=== PATIENT | female | born 1970 | race Caucasian/White ===

== ENCOUNTER 2021-01-14 11:55 | Inpatient (IN) | payer MEDICAID, SELFPAY ==
[~2021-01-14] VITALS: Ht 142.2 cm; Wt 55.6 kg
--- NOTE | 2021-01-14 01:00 | NUR ---
MADE ROUNDS. PATIENT IS ASLEEP. NO S/S RESPIRATORY DISTRESS. PATIENT IS CLEAN/DRY.
[~2021-01-14 11:55] MED LIST: ACET-8386 PO; TAMS0.4C96 PO
--- NOTE | 2021-01-14 12:00 | NUR ---
BIB WHEELCHAIR TO ER BED 3
[2021-01-14 12:06] VITALS: BP 144/104
[2021-01-14] MEDS ORDERED: cefTRIAXone 1,000 MG in DEXT 5% MINI-BAG PLUS 50 ML IV ONE (12:10)
[2021-01-14] MEDS ORDERED: NACL 0.9% 1,000 ML IV ONE (12:10)
[2021-01-14] MEDS ORDERED: ACETAMINOPHEN EXTRA STRENGTH 500 MG TAB PO ONE (12:10)
--- NOTE | 2021-01-14 12:11 | NUR ---
50 Y/O FEMALE BIB FAMILY C/O SOB AND COUGH [id number], TODAY WORSENED. PT STATES SHE RECEIVED SECOND DOSE OF PFIZER YESTERDAY. TEMP DURING 101.3F. LUNGS ARE DIMINISHED BILATERAL BASES RETRACTING NOTED. PT 68-70% ON RA, PT PLACED ON 6L NC WITH HUMIDIFER SPO2 91%. RT AT PT BEDSIDE. DENIES PMH NKA
--- NOTE | 2021-01-14 12:13 | NUR ---
RT PLACED PT ON 15L NC WITH HUMIDIFIER. MD MADE AWARE. SPO2 96%.
[2021-01-14] MEDS ORDERED: cefTRIAXone 1,000 MG VIAL ONE (12:16)
--- NOTE | 2021-01-14 12:20 | NUR ---
AGRICULTURAL COMMODITIES GRADER AT PT BEDSIDE.
--- NOTE | 2021-01-14 12:23 | NUR ---
UNDERGROUND HEAVY EQUIPMENT OPERATOR AT PT BEDSIDE.
--- NOTE | 2021-01-14 12:32 | NUR ---
PER ERMD 12 LEAD WAS DONE ON PT AND CAME BACK SINUS TACHYCARDIA AT 115 HR.
[2021-01-14 12:55] LABS: BASOPHILS # (AUTO) 0.1 K/uL (0.00-0.22); BASOPHILS % (AUTO) 0.8 % (0.0-2.0); EOSINOPHILS % (AUTO) 0.3 % (0.0-4.0); HEMATOCRIT 53.3 % (36-48); HEMOGLOBIN 17.1 g/dL (12.0-16.0); LYMPHOCYTES % (AUTO) 9.2 % (20.5-51.1); MEAN CORPUSCULAR HEMOGLOBIN 26 pg (27-31); MEAN CORPUSCULAR HGB CONC 32 g/dL (33-37); MEAN CORPUSCULAR VOLUME 81.7 fL (80-94); MONOCYTES # (AUTO) 0.7 K/uL (0.8-1.0); MONOCYTES % (AUTO) 6.8 % (1.7-9.3); NEUTROPHILS # (AUTO) 8.9 K/uL (1.8-7.7); NEUTROPHILS % (AUTO) 82.9 % (42.2-75.2); PLATELET COUNT (AUTO) 295 K/uL (140-450); RED BLOOD CELL COUNT(AUTO) 6.52 MIL/uL (4.20-5.40); RED CELL DISTRIBUTION WIDTH 20.9 % (11.6-13.7); WHITE BLOOD COUNT (AUTO) 10.7 K/uL (4.8-10.8)
[2021-01-14 13:17] LABS: ALBUMIN 3.5 g/dL (3.4-5.0); ANION GAP 17.7 (8-16); CARBON DIOXIDE 22.4 mmol/L (21-32); CREATININE 0.6 mg/dL (0.6-1.3); POTASSIUM 4.1 mmol/L (3.5-5.1); TOTAL BILIRUBIN 0.8 mg/dL (0.0-1.0)
--- NOTE | 2021-01-14 13:32 | NUR ---
PER MD PT IV BOLUS TO BE STOPPED AT THIS TIME.
[2021-01-14] MEDS ORDERED: LORazepam 2 MG/ML VIAL IVP PRN (13:45)
[2021-01-14] MEDS ORDERED: ONDANSETRON 4 MG/2 ML VIAL IVP PRN (13:45)
[2021-01-14] MEDS ORDERED: ZOLPIDEM 10 MG TAB PO PRN (13:45)
[2021-01-14] MEDS ORDERED: MORPHINE SULFATE 2 MG/ML SYR IVP PRN (13:45)
[2021-01-14] MEDS ORDERED: FUROSEMIDE 40 MG/4 ML VIAL IVP ONE (13:45)
[2021-01-14] MEDS ORDERED: DOCUSATE SODIUM 100 MG GELCAP PO PRN (13:45)
[2021-01-14] MEDS ORDERED: POTASSIUM CHLORIDE 10 MEQ TABER PO PRN (13:45)
[2021-01-14] MEDS ORDERED: MAG SULF 2000 MG/WATER PREMIX 50 ML IV PRN (13:45)
--- NOTE | 2021-01-14 13:55 | NUR ---
PT ADMITTED BY IRMA TAMEZ IN ER BED 3.
--- NOTE | 2021-01-14 14:11 | NUR ---
PT USED COMMODE AT BEDSIDE.
--- NOTE | 2021-01-14 15:04 | NUR ---
PT RESTING IN BED, VSS, WILL CONTINUE TO MONITOR.
--- NOTE | 2021-01-14 16:31 | NUR ---
SPOKE WITH JAMES PT SISTER FOR PT UPDATES. [phone].
--- NOTE | 2021-01-14 17:11 | NUR ---
PT RESTING IN BED, VSS, WILL CONTINUE TO MONITOR.
--- NOTE | 2021-01-14 19:07 | NUR ---
PT PTROVIDED WITH DINNER TRAY, SITTING UP IN BED, WILL CONTINUE TO MONITOR.
--- NOTE | 2021-01-14 19:25 | NUR ---
GAVE REPORT TO GRACE GRAY. TRANSFER OF CARE AT THIS TIME.
--- NOTE | 2021-01-14 19:25 | NUR ---
RECEIVED REPORT FROM YVONNE FOR CONTINUITY OF CARE
--- NOTE | 2021-01-14 19:32 | NUR ---
Patient appears to be resting comfortably in bed- low fowlers and in position. Vital Signs within normal limits. Respirations even and unlabored on 15L NC with humidifier. Patient denies any pain but does c/o discomfort in relation to her cough. AAOx4. GCS 15. IV flushable with 10cc, patent with no swelling at the site.
[2021-01-14 23:00] VITALS: BP 125/90
--- NOTE | 2021-01-14 23:00 | NUR ---
RECEIVED PATIENT FROM ER NURSE FOR CONTINUITY OF CARE. ALERT AND ABLE TO MAKE NEEDS KNOWN. RESPIRATIONS EVEN, SLIGHTLY TACHYPNEIC. NO S/S RESPIRATORY DISTRESS. CONTINUES ON O2 10L VIA HFNC, O2SAT 97%. S1/S2 AUSCULTATED. TELE MONITORING. SKIN ASSESSMENT COMPLETED. SKIN WARM, DRY AND INTACT. SALINE LOCK TO RIGHT WRIST 20G PATENT/INTACT. NO C/O PAIN. ABDOMEN SOFT, NONTENDER, NONDISTENDED. BOWEL SOUNDS ACTIVE x4 QUADRANTS. PATIENT IS CONTINENT OF B/B. MRSA SCREEN COMPLETED. PATIENT ORIENTED TO ROOM/STAFF/CALL LIGHT. PLAN OF CARE DISCUSSED. CALL LIGHT IN REACH.
--- NOTE | 2021-01-14 23:00 | NUR ---
Patient will be admitted to care of Rangel BLAIR. Admited to [facility]. Will go to room ICU RM 1. Belongings list completed. Report to Maki EDAWRDS.
[2021-01-15] VITALS (7 sets, daily range): BP systolic 107–131; BP diastolic 74–88
--- NOTE | 2021-01-15 03:44 | NUR ---
PATIENT IS ASLEEP. NO S/S RESPIRATORY DISTRESS. PATIENT IS CLEAN/DRY.
--- NOTE | 2021-01-15 05:08 | NUR ---
ALL NEEDS ANTICIPATED AND MET. NO S/S RESPIRATORY DISTRESS. DENIES PAIN. PATIENT IS CLEAN/DRY.
[2021-01-15 07:02] LABS: BASOPHILS # (AUTO) 0.1 K/uL (0.00-0.22); BASOPHILS % (AUTO) 0.9 % (0.0-2.0); EOSINOPHILS # (AUTO) 0.6 K/uL (0-0.4); EOSINOPHILS % (AUTO) 7.2 % (0.0-4.0); HEMATOCRIT 54.4 % (36-48); HEMOGLOBIN 17.3 g/dL (12.0-16.0); LYMPHOCYTES % (AUTO) 13.1 % (20.5-51.1); MEAN CORPUSCULAR HEMOGLOBIN 26 pg (27-31); MEAN CORPUSCULAR HGB CONC 32 g/dL (33-37); MEAN CORPUSCULAR VOLUME 82.1 fL (80-94); MONOCYTES # (AUTO) 0.7 K/uL (0.8-1.0); MONOCYTES % (AUTO) 9.4 % (1.7-9.3); NEUTROPHILS # (AUTO) 5.5 K/uL (1.8-7.7); NEUTROPHILS % (AUTO) 69.4 % (42.2-75.2); PLATELET COUNT (AUTO) 250 K/uL (140-450); RED BLOOD CELL COUNT(AUTO) 6.62 MIL/uL (4.20-5.40); RED CELL DISTRIBUTION WIDTH 20.6 % (11.6-13.7); WHITE BLOOD COUNT (AUTO) 7.9 K/uL (4.8-10.8)
--- NOTE | 2021-01-15 07:18 | NUR ---
Change of shift report received at bedside from Maki RN. Met pt awake alert oriented x4 denies pain vitals signs stable no sign of distress, on 6l lters oxygen via nasal canula, pt on telemetry status, education on care plan, needs some reinforcement understand and speak Cymro only. Call light at reach, bed in low position encouraged to call for help and verbalized concerns to decrease anxiety.
[2021-01-15 07:24] LABS: ANION GAP 12.3 (8-16); CARBON DIOXIDE 27.1 mmol/L (21-32); CREATININE 0.6 mg/dL (0.6-1.3); POTASSIUM 4.4 mmol/L (3.5-5.1)
--- NOTE | 2021-01-15 07:45 | NUR ---
Dr Multani was here updates on pt's condition ongoig tx no new order received as at this time.
[2021-01-15] MEDS ORDERED: AZITHROMYCIN 250 MG TAB PO SCH ×2 (09:00)
[2021-01-15] MEDS: ACETAMINOPHEN 325 MG TAB PO PRN (09:13)
[2021-01-15] MEDS: FUROSEMIDE 40 MG/4 ML VIAL IVP SCH (09:15)
--- NOTE | 2021-01-15 09:45 | NUR ---
Notified Dr Multani about pt frequent coughing with sputum, complaining of headache temp was 99.4 F orally order received COVID PCR AND FLU LAB.
[2021-01-15] MEDS: guaiFENesin DM 200/20 MG-10 ML 10 ML UDC PO PRN ×2 (10:25→20:18)
--- NOTE | 2021-01-15 10:45 | NUR ---
Dr Stewart rounds at the bedside updates on pt's condition, MD asked if pt received Lasix this AM, yes and order next for Echo ultrasound.
--- NOTE | 2021-01-15 11:00 | NUR ---
@ 1040 Specimen for PCR and influenza sent to lab awaiting result
--- NOTE | 2021-01-15 12:54 | NUR ---
Dr Feliz rounds on the pt at the bedside updates on pt's condition on admission/presently ongoing treatments order received for CT SCAN CHEST WITHOUT CONTRAST
--- NOTE | 2021-01-15 14:30 | NUR ---
Echocardiogram and Chest CT scan completed as per MD'S order awaiting results
[2021-01-15] MEDS ORDERED: FUROSEMIDE 40 MG/4 ML VIAL IVP SCH (16:00)
--- NOTE | 2021-01-15 16:45 | NUR ---
FLU A & B result negative awaiting covid PCR, CT SCAN result as per Radiologist suggested correlation for COVID. CT SCAN chest also showed pulmonary edema but pt already on Lasix 40 MG IVP.
--- NOTE | 2021-01-15 17:30 | NUR ---
Awake alert oriented x4 as at this time, vitals signs stable afebrile all through the shift pt is tolerating all her care and treatments well no problem encountered and no complain from pt.
--- NOTE | 2021-01-15 19:03 | NUR ---
Change of shift report given to Sarah EDWARDS for continuity of care, as at this time pt awake alert oriented x4 vitals signs stable no changes in care plan and condition.
--- NOTE | 2021-01-15 19:15 | NUR ---
ASSUMED CARE OF PT.INITIAL ASSESSMENT COMPLETED.PT AWAKE ALERT AND ORIENTED X4. SR ON MONITOR.ON 02NC AT 3LPM.INTERMITTENT PRODUCTIVE COUGHING NOTED.PT ON CARDIAC DIET.DENIES N/V.PT ABLE TO VOID FREELY USING BEDPAN.PT ALSO AMBULATES INSIDE THE ROOM WITH STEADY GAIT.DENIES PAIN AT THIS TIME.WILL CONTINUE TO CLOSELY MONITOR PT
--- NOTE | 2021-01-15 20:06 | NUR ---
CALLED PHONE EDUCATION PROGRAM MANAGER #[phone]; FOR PTS CONCERN/NEEDS.PER EDUCATION PROGRAM MANAGER; PT SAID SHE IS OK AT THIS TIME, JUST WANT SOME PADS, SLIGHT URINARY INCONTINENCE NOTED DURING COUGHING EPISODE.CALL LIGHT WITHIN REACH.FALL PRECAUTIONS IN PLACE.
--- NOTE | 2021-01-15 22:39 | NUR ---
PT ASLEEP AT THIS TIME.NO SIGNS OF RESP DISTRESS NOTED AT THIS TIME.STILL ON 02NC AT 3LPM
[2021-01-16] VITALS: BP_SYST 100; BP_SYST 98; BP_DIAS 66; BP_DIAS 72
--- NOTE | 2021-01-16 00:41 | NUR ---
PT ASLEEP;NO COUGHING NOTED.NO S/SX OFPAIN NOTED.STILL ON 02NC AT 3LPM
[2021-01-16] MEDS: ACETAMINOPHEN 325 MG TAB PO PRN (01:42)
--- NOTE | 2021-01-16 01:43 | NUR ---
PT AWAKE; C/O HEADACHE.TYLENOL ADMINISTERED ORDERED.
--- NOTE | 2021-01-16 02:42 | NUR ---
PT ASLEEP;NO S/SX OF PAIN NOTED.02SAT 96% ON 02NC AT 3LPM
[2021-01-16 04:00] VITALS: BP 92/63
--- NOTE | 2021-01-16 04:58 | NUR ---
PT AWAKE, OFFERED MORNING CARE, REFUSED AT THIS TIME.PT VERBALIZED FEELING COLD.DENIES PAIN.DENIES HEADACHE
[2021-01-16 06:04] LABS: BASOPHILS # (AUTO) 0.1 K/uL (0.00-0.22); BASOPHILS % (AUTO) 0.7 % (0.0-2.0); EOSINOPHILS # (AUTO) 1.2 K/uL (0-0.4); EOSINOPHILS % (AUTO) 12.2 % (0.0-4.0); HEMATOCRIT 53.8 % (36-48); HEMOGLOBIN 16.9 g/dL (12.0-16.0); LYMPHOCYTES # (AUTO) 2.1 K/uL (2.5-16.5); LYMPHOCYTES % (AUTO) 22.5 % (20.5-51.1); MEAN CORPUSCULAR HEMOGLOBIN 26 pg (27-31); MEAN CORPUSCULAR HGB CONC 31 g/dL (33-37); MEAN CORPUSCULAR VOLUME 82.5 fL (80-94); MONOCYTES # (AUTO) 1.4 K/uL (0.8-1.0); MONOCYTES % (AUTO) 14.5 % (1.7-9.3); NEUTROPHILS # (AUTO) 4.8 K/uL (1.8-7.7); NEUTROPHILS % (AUTO) 50.1 % (42.2-75.2); PLATELET COUNT (AUTO) 281 K/uL (140-450); RED BLOOD CELL COUNT(AUTO) 6.52 MIL/uL (4.20-5.40); RED CELL DISTRIBUTION WIDTH 20.9 % (11.6-13.7); WHITE BLOOD COUNT (AUTO) 9.5 K/uL (4.8-10.8)
[2021-01-16 06:36] LABS: ANION GAP 13.3 (8-16); CREATININE 0.6 mg/dL (0.6-1.3); POTASSIUM 4.3 mmol/L (3.5-5.1)
[2021-01-16 08:00] VITALS: BP 97/61
--- NOTE | 2021-01-16 08:00 | NUR ---
ON DUTY RECEIVED THIS PT A/OX4, SPEAKS FULL SENTENCES, BUT IN [place], PT DENIES RIBEIRO AND DIZZINESS. NO S/S OF SOB. OXYGEN ON 3L. O2 SAT WAS 93%. PT WAS IN TELEMETRY STATUS. POSSIBLE HX OF COVID19. BREAKFAST OFFERED @BEDSIDE AT THIS SIDE.
--- NOTE | 2021-01-16 09:00 | NUR ---
PT COMPLAINING OF COLD. BIG SUPERVISOR GAS METER REPAIR, WARMING MACHINE WAS TURNED ON 38 DECREE AND PUT UNDER PT'S BLANKET.
--- NOTE | 2021-01-16 09:08 | NUR ---
PATIENT HAS BEEN SCREENED AND CATEGORIZED MODERATE NUTRITION RISK. PATIENT WILL BE SEEN WITHIN 3-5 DAYS OF ADMISSION. 01/17/21 01/19/21 FNS REFERRAL RECEIVED "NOT APPLICABLE" WITHOUT ANY OTHER NUTRITION HIGH RISK FACTORS ZOHAIB BECERRA RD
[2021-01-16] MEDS: AZITHROMYCIN 250 MG TAB PO SCH (09:36)
[2021-01-16] MEDS: FUROSEMIDE 40 MG/4 ML VIAL IVP SCH (09:36)
--- NOTE | 2021-01-16 10:01 | NUR ---
MORNING MEDICINE GIVEN. PT WAS TRANSFERED TO REGULAR FLOOR BY W/C.
--- NOTE | 2021-01-16 10:05 | NUR ---
RECEIVED REPORT FROM ICU FOR CONTINUITY OF CARE. TRANSFERRED PT TO 118. PT IN BED WITH HOB ELEVATED AOX4. NO S/S ACUTE DISTRESS. BREATHING EVEN AND UNLABORED ON 2L NC. NO C/O PAIN. R FOREARM 20G INTACT/PATENT. POC DISCUSSED. BED IN LOW/LOCKED POSITION. CALL LIGHT WITHIN REACH. ISO FRO COVID PUI. WILL CONTINUE TO MONITOR.
[2021-01-16 12:00] VITALS: BP 114/88
--- NOTE | 2021-01-16 13:15 | NUR ---
PT RESTING IN BED WITH EPISODES OF COUGH, WILL GIVE ROBITUSSIN PRN
--- NOTE | 2021-01-16 13:26 | NUR ---
DC PLANNIN YRS OLD FEMALE PATIENT WAS ADMITTED FROM HOME WITH A DX OF CHF EXACERBATION. PATIENT HAS A HX OF COVID IN ABOUT A YEAR AGO AND ARTHRITIS. ON O2 2L/NC SATING 94% CXR SHOWED CARDIOMEGALLY WITH PULMONARY VASCULAR CONGESTION RAPID COVID TEST NEGATIVE. ADMINISTERED IV LASIX. CONSULTED WITH PULMO AND CARDIO. DC PLAN TO GO HOME WHEN STABLE. CM TO FOLLOW Addendum: 01/19/21 at 1513 by Mee Reyes RN DC PLANNING: CALLED [facility] SPOKE WITH GARCIA STATED WILL REVIEW THE PAPERWORK AND CALL BACK. SINCE PATIENT HAS MEDICAL HOSPITAL PRESUMPTIVE, AND COVID NEGATIVE IT MIGHT BE DIFFICULT TO QUALIFY FOR HOME O2. I SPOKE WITH PATIENT Thania ND EXPLAINED BUT PT STATED SHE IS NOT WORKING AND SHE HAS NO ONE TO PAY FOR HER. [facility]. CM TO FOLLOW Addendum: 01/19/21 at 1558 by Mee Reyes RN DC PLANNING: RECEIVED A CALL FROM [facility] SPOKE WITH GARCIA DISCUSSED THE NEED FOR HOME O2 PER GARCIA PT'S COVERAGE IS ONLY COVID COVERAGE AND PATIENT CAN NOT QUALIFY. THE [employer] WILL BE $525 NOTIFIED PATIENT THAT SHE IS NOT QUALIFIED AND THE GERMAIN AUGUSTE. CM TO FOLLOW Addendum: 01/23/21 at 1124 by Mee Reyes RN DC PLANNING: PT'S FAMILY AGREED TO PAY FOR THE HOME O2. CALLED [facility] [place] SPOKE WITH [employer]IT PANDEY QUINTON PT'S SISTER PAID 525$ FOR HOME O2 [facility] WILL DELIVER TO HOME AND FAMILY WILL BRING THE OXYGEN AND WILL VISCOSITY TESTER PATIENT AT 4:30. NOTIFIED GRACE BERNABE. CM TO FOLLOW
[2021-01-16] MEDS: guaiFENesin DM 200/20 MG-10 ML 10 ML UDC PO PRN (15:44)
[2021-01-16 16:00] VITALS: BP 109/72
--- NOTE | 2021-01-16 18:20 | NUR ---
PT RESTING IN BED, NO APPARENT DISTRESS
[2021-01-16 20:00] VITALS: BP 106/68
[2021-01-17] VITALS (7 sets, daily range): BP systolic 99–123; BP diastolic 49–86
--- NOTE | 2021-01-17 07:15 | NUR ---
RECEIVED BEDSIDE REPORT FROM MEDICAL CLERICAL ASSISTANT NURSE FOR CONTINUITY OF CARE. PT IS AWAKE AND ALERT. A&OX4. ON 3L O2 NC WITH BREATHING UNLABORED. PT IS AMBULATORY INDEPENDENTLY. SKIN IS WARM, DRY, AND INTACT. IV IS IN THE RIGHT FOREARM 20 GAUGE SALINE LOCKED. PT IS STABLE. PLAN OF CARE DISCUSSED.
[2021-01-17 07:24] LABS: BASOPHILS % (AUTO) 0.4 % (0.0-2.0); EOSINOPHILS # (AUTO) 0.8 K/uL (0-0.4); EOSINOPHILS % (AUTO) 7.9 % (0.0-4.0); HEMATOCRIT 51.6 % (36-48); HEMOGLOBIN 16.4 g/dL (12.0-16.0); LYMPHOCYTES # (AUTO) 2.5 K/uL (2.5-16.5); LYMPHOCYTES % (AUTO) 23.5 % (20.5-51.1); MEAN CORPUSCULAR HEMOGLOBIN 26 pg (27-31); MEAN CORPUSCULAR HGB CONC 32 g/dL (33-37); MEAN CORPUSCULAR VOLUME 81.9 fL (80-94); MONOCYTES # (AUTO) 1.3 K/uL (0.8-1.0); MONOCYTES % (AUTO) 11.9 % (1.7-9.3); NEUTROPHILS # (AUTO) 6.1 K/uL (1.8-7.7); NEUTROPHILS % (AUTO) 56.3 % (42.2-75.2); PLATELET COUNT (AUTO) 272 K/uL (140-450); WHITE BLOOD COUNT (AUTO) 10.7 K/uL (4.8-10.8)
[2021-01-17 07:35] LABS: CARBON DIOXIDE 37.4 mmol/L (21-32); CREATININE 0.6 mg/dL (0.6-1.3); POTASSIUM 4.4 mmol/L (3.5-5.1)
[2021-01-17] MEDS: FUROSEMIDE 40 MG/4 ML VIAL IVP SCH ×2 (08:46→09:47)
[2021-01-17] MEDS: AZITHROMYCIN 250 MG TAB PO SCH ×2 (08:46→09:41)
--- NOTE | 2021-01-17 09:30 | NUR ---
PT IS AWAKE AND ALERT. RESPONDING APPROPRIATELY. ON 3L O2 NC WITH BREATHING UNLABORED. IV IS INTACT AND IN PLACE. PT IS STABLE.
[2021-01-17] MEDS ORDERED: CEPH250C16 PO (10:54)
[2021-01-17] MEDS ORDERED: FURO-570 PO (10:54)
--- NOTE | 2021-01-17 11:30 | NUR ---
PT IS ASLEEP. CHEST RISE AND FALL IS SYMMETRICAL. IV IS INTACT. BELONGINGS ARE AT BEDSIDE WITHIN REACH. PT IS STABLE.
--- NOTE | 2021-01-17 13:00 | NUR ---
WEANING PT OFF OXYGEN TO BE STABLE FOR DISCHARGE. PT'S O2 WAS WEANED FROM 3L O2 NC TO 2L O2. PT IS TOLERATING IT WELL. O2 SAT IS NOW AT 95%. PT DENIES LABORED BREATHING OR SOB. NO DISTRESS NOTED.
--- NOTE | 2021-01-17 15:00 | NUR ---
PT'S OXYGEN WAS DECREASED TO 1L O2 NC FROM 2L O2. PT TOLERATING THIS WELL. O2 SAT IS AT 92%. WILL CONTINUE TO WEAN PT FOR DISCHARGE.
--- NOTE | 2021-01-17 15:46 | NUR ---
ATTEMPTED TO WEAN PT FROM 1L O2 NC TO ROOM AIR. O2 SAT WENT DOWN TO 85%. CONSISTENTLY STAYED AT THIS SATURATION FOR 2 MINUTES. PLACED 1L O2 NC BACK ON PT. WILL CONTINUE TO MONITOR. INCENTIVE SPIROMETER TEACHING WAS PROVIDED AGAIN. RETURN DEMONSTRATION COMPLETED. INFORMED DR. COVARRUBIAS ABOUT THE PT'S O2 SAT BEING UNSTABLE ON RA. WILL WAIT FOR RESPONSE ON THE DISCHARGE ORDER.
--- NOTE | 2021-01-17 16:52 | NUR ---
RECEIVED MESSAGE FROM DR. COVARRUBIAS ABOUT THE PT'S O2 DESATING ON RA. HE ORDERED TO TAKE PT OFF OXYGEN AND PLACE ON ROOM AIR UNTIL 9 PM AND MONITOR. IF PT IS UNABLE TO KEEP SATURATION AT 90% OR ABOVE ON RA THEN PT WILL NOT BE DISCHARGED TONIGHT PER MD. PT WAS TAKEN OFF OXYGEN, WILL CONTINUE TO MONITOR.
--- NOTE | 2021-01-17 17:30 | NUR ---
PT'S O2 SAT DECREASED TO 84% ON RA. PT IS AMBULATING WITH NO DISTRESS. O2 1 LITER NC WAS PLACED ON PT. O2 SAT WENT UP TO 92%. PT IS STABLE ON OXYGEN. PT IS UNABLE TO DISCHARGE SHE CANNOT TOLERATE ROOM AIR INSTRUCTED BY DR. COVARRUBIAS.
--- NOTE | 2021-01-17 18:00 | NUR ---
PREVIOUS IV PULLED OUT. NEW IV WAS PLACED IN THE RIGHT HAND 24 GAUGE SALINE LOCKED. PATENT AND FLUSHING WELL. PT TOLERATED THE INSERTION WELL.
--- NOTE | 2021-01-17 19:20 | NUR ---
ENDORSED PT TO LIP AND GATE BUILDER NURSE FOR CONTINUITY OF CARE PT IS STABLE AT THIS TIME. PLAN OF CARE DISCUSSED.
--- NOTE | 2021-01-17 19:25 | NUR ---
RECEIVED REPORT FROM KELLY EDAWRDS FOR CONTINUITY OF CARE. PT AAOX4, SOB ON EXERTION PATIENT IS UP TO BRP WITH OXYGEN OFF AND ROOM O2 AT 86%. PATIENT PLACED BACK ON O2 1.5L WITH O2 SAT IMPROVEMENT TO 91%. R HAND 24G IVL, INTACT/PATENT. POC AND WHITE COMMUNICATION BOARD UPDATED. BED IN LOW/LOCKED POSITION. CALL LIGHT WITHIN REACH. PT ENCOURAGED TO CALL FOR ANY NEEDS/ASSISTANCE. WILL CONTINUE TO MONITOR.
[2021-01-17] MEDS: guaiFENesin DM 200/20 MG-10 ML 10 ML UDC PO PRN (20:35)
--- NOTE | 2021-01-17 20:49 | NUR ---
PT UP TO BRP, OFF OXYGEN AND O2 DROPPED TO 80%. PLACED BACK ON 1.5L AND O2 SAT SLOWLY IMPROVING TO LOW 90s. WILL CONTINUE TO MONITOR.
--- NOTE | 2021-01-17 23:53 | NUR ---
PT REMOVED FROM O2 AND PT DESAT 83% 5 MIN AFTER REMOVING NC PT REPLACED ON 1.5LNC AND SPO2 RETURNED TO 90s WILL CONTINUE TO MONITOR
[2021-01-18] VITALS: BP 110/74
[2021-01-18 04:00] VITALS: BP 112/70
[2021-01-18 06:58] LABS: BASOPHILS % (AUTO) 0.5 % (0.0-2.0); EOSINOPHILS # (AUTO) 0.6 K/uL (0-0.4); EOSINOPHILS % (AUTO) 7.6 % (0.0-4.0); HEMOGLOBIN 16.2 g/dL (12.0-16.0); LYMPHOCYTES # (AUTO) 2.4 K/uL (2.5-16.5); LYMPHOCYTES % (AUTO) 31.7 % (20.5-51.1); MEAN CORPUSCULAR HEMOGLOBIN 26 pg (27-31); MEAN CORPUSCULAR HGB CONC 32 g/dL (33-37); MEAN CORPUSCULAR VOLUME 81.2 fL (80-94); MONOCYTES # (AUTO) 1.1 K/uL (0.8-1.0); MONOCYTES % (AUTO) 14.2 % (1.7-9.3); NEUTROPHILS # (AUTO) 3.5 K/uL (1.8-7.7); PLATELET COUNT (AUTO) 264 K/uL (140-450); RED BLOOD CELL COUNT(AUTO) 6.28 MIL/uL (4.20-5.40); RED CELL DISTRIBUTION WIDTH 20.5 % (11.6-13.7); WHITE BLOOD COUNT (AUTO) 7.5 K/uL (4.8-10.8)
--- NOTE | 2021-01-18 06:59 | NUR ---
REPORT GIVEN TO LUBA EDWARDS FOR CONTINUITY OF CARE. PT SITTING UP AAOX4. NO APPARENT S/S OF ACUTE DISTRESS. BREATHING EVEN AND UNLABORED. BED IN LOW/LOCKED POSITION. CALL LIGHT WITHIN REACH. ALL NEEDS MET AT THIS TIME.
[2021-01-18 07:04] LABS: ANION GAP 9.3 (8-16); CARBON DIOXIDE 34.3 mmol/L (21-32); CREATININE 0.5 mg/dL (0.6-1.3); POTASSIUM 3.6 mmol/L (3.5-5.1)
--- NOTE | 2021-01-18 07:30 | NUR ---
RECEIVED REPORT FROM PM NURSE. PATIENT IS AWAKE, ALERT, AND VERBALLY RESPONSIVE IN [place]. IV IS DRY, PATENT, AND INTACT. NO S/S OF RESPIRATORY DISTRESS. PT IS STABLE. ALL SAFETY PRECAUTIONS ARE IN PLACE. CALL LIGHT WITHIN REACH. WILL CONTINUE TO MONITOR.
[2021-01-18 08:00] VITALS: BP 113/74
[2021-01-18] MEDS: FUROSEMIDE 40 MG/4 ML VIAL IVP SCH (08:59)
--- NOTE | 2021-01-18 09:35 | NUR ---
MEDS WERE GIVEN PER MD ORDER. VITAL SIGNS AND LABS WERE CHECKED BEFORE ADMINISTRATION. PT IS STABLE. WILL CONTINUE TO MONITOR.
--- NOTE | 2021-01-18 09:45 | NUR ---
MONITORING AND WORKING ON TITRATING O2. PT IS AT 1L OF O2. SATING AROUND 88. PT IS STABLE. WILL CONTINUE TO MONITOR.
[2021-01-18 12:00] VITALS: BP 112/83
--- NOTE | 2021-01-18 12:09 | NUR ---
FOUND PATIENT ON ROOM AIR - SATURATIONS 85-86. INFORMED RN AT NURSES STATION OF CURRENT SATURATIONS ON ROOM AIR.
--- NOTE | 2021-01-18 19:25 | NUR ---
PT SEEN AND ASSESSED. FOUND PT ON 1L NC WITH SPO2 IN 80s%. TITRATED O2 TO 2L WITH SPO2 95%. PT IS IN NO RESPIRATORY DISTRESS AT THIS TIME. WILL CONTINUE TO MONITOR PT.
--- NOTE | 2021-01-18 19:30 | NUR ---
RECEIVED REPORT FROM AM SHIFT NURSE, FOR CONTINUITY OF CARE. PT O2 SAT @99%. PT IS STABLE.
[2021-01-18 20:00] VITALS: BP 100/71
--- NOTE | 2021-01-18 20:05 | NUR ---
PT ON BED AWAKE, A&OX4. NO S/S OF DISTRESS. ON OXYGEN 1L VIA NC. O2 SAT @99%. SKIN IS WARM, DRY AND INTACT. IV ON RIGHT HAND HAND GAUGE 24, SALINE LOCK. ALL SAFETY MEASURES IN PLACE. CALL LIGHT WITHIN REACH. WILL CONTINUE TO MONITOR.
--- NOTE | 2021-01-18 22:10 | NUR ---
PT ON BED AWAKE, DENIES ANY PAIN. NO OTHER COMPLAIN. O2 SAT @ 90%. CALL LIGHT WITHIN REACH. ALL SAFETY PRECAUTIONS IN PLACE. WILL CONTINUE TO MONITOR.
[2021-01-18] MEDS: guaiFENesin DM 200/20 MG-10 ML 10 ML UDC PO PRN (23:20)
--- NOTE | 2021-01-18 23:20 | NUR ---
PT COMPLAINS OF COUGH, ADMINISTERED PRN ROBITUSSIN ORDERED. OTHER DUE MEDS GIVEN AND PROVIDED MEDICATION EDUCATION, PT VERBALIZED UNDERSTANDING. ALL SAFETY MEASURES IN PLACE.
[2021-01-19] VITALS: BP 106/65
--- NOTE | 2021-01-19 00:15 | NUR ---
VITAL SIGNS TAKEN AND RECORDED. NO S/S OF ANY DISTRESS. O2 SAT @ 92%. CALL LIGHT WITHIN REACH. ALL SAFETY PRECAUTIONS IN PLACE. WILL CONTINUE TO MONITOR.
--- NOTE | 2021-01-19 02:29 | NUR ---
MADE ROUNDS ON PT, NO S/S OF DISTRESS. CHEST RISE AND FALL SYMMETRICAL. O2 SAT @ 98%. WILL CONTINUE TO MONITOR.
[2021-01-19 04:00] VITALS: BP 106/67
--- NOTE | 2021-01-19 04:25 | NUR ---
VITAL SIGNS TAKEN AND RECORDED FOLLOWS: BP-106/67, PA-72, RR-20, T-98.0, O2 SAT @ 99%. BREATHING UNLABORED. NEEDS ATTENDED. CALL LIGHT WITHIN REACH. WILL CONTINUE TO MONITOR.
--- NOTE | 2021-01-19 06:30 | NUR ---
PT ASLEEP, NO S/S OF DISTRESS. O2 SAT @ 98%. STILL ON OXYGEN 1L VIA NC. DENIES ANY PAIN. ALL SAFETY MEASURES IN PLACE.
[2021-01-19 07:18] LABS: BASOPHILS # (AUTO) 0.1 K/uL (0.00-0.22); BASOPHILS % (AUTO) 0.9 % (0.0-2.0); EOSINOPHILS # (AUTO) 0.5 K/uL (0-0.4); EOSINOPHILS % (AUTO) 5.2 % (0.0-4.0); HEMATOCRIT 50.7 % (36-48); HEMOGLOBIN 16.3 g/dL (12.0-16.0); LYMPHOCYTES # (AUTO) 3.2 K/uL (2.5-16.5); MEAN CORPUSCULAR HEMOGLOBIN 26 pg (27-31); MEAN CORPUSCULAR HGB CONC 32 g/dL (33-37); MEAN CORPUSCULAR VOLUME 80.7 fL (80-94); MONOCYTES # (AUTO) 1.2 K/uL (0.8-1.0); MONOCYTES % (AUTO) 11.9 % (1.7-9.3); NEUTROPHILS # (AUTO) 5.3 K/uL (1.8-7.7); PLATELET COUNT (AUTO) 272 K/uL (140-450); RED BLOOD CELL COUNT(AUTO) 6.28 MIL/uL (4.20-5.40); RED CELL DISTRIBUTION WIDTH 20.7 % (11.6-13.7); WHITE BLOOD COUNT (AUTO) 10.3 K/uL (4.8-10.8)
--- NOTE | 2021-01-19 07:25 | NUR ---
ENDORSED PT TO AM SHIFT NURSE FOR CONTINUITY OF CARE. PT IS STABLE.
[2021-01-19 07:31] LABS: ANION GAP 6.3 (8-16); CARBON DIOXIDE 36.6 mmol/L (21-32); CREATININE 0.7 mg/dL (0.6-1.3); POTASSIUM 3.9 mmol/L (3.5-5.1)
[2021-01-19 08:00] VITALS: BP 107/70
[2021-01-19] MEDS: FUROSEMIDE 40 MG/4 ML VIAL IVP SCH (09:48)
[2021-01-19 12:00] VITALS: BP 120/89
[2021-01-19] MEDS ORDERED: acetaZOLAMIDE sodium 250 MG in NACL 0.9% 50 ML IV SCH (12:00)
--- NOTE | 2021-01-19 14:11 | NUR ---
01/19/21 RD INITIAL ASSESSMENT COMPLETED PLEASE REFER TO NUTRITION ASSESSMENT UNDER CARE ACTIVITY FOR ESTIMATED NUTRITIONAL NEEDS. 1.CONTINUE CARDIAC DIET TOLERATED 2.PROVIDED NUTRITION ED ON 2GM NA DIET 3. RD TO FOLLOW-UP 5-7 DAYS, LOW RISK REVIEWED BY ZOHAIB BECERRA RD
--- NOTE | 2021-01-19 15:00 | NUR ---
PT RESTING IN BED, RESPIRATIONS EVEN AND UL ON 1LNC, OXYGEN SATURATION 94-96%. ATTEMPTED TO TITRATE O2 DOWN TO ROOM AIR, PT OXYGEN SATURATION 86-87%%. PLACED BACK ON 1LNC, O2 SAT 95%. WILL CONT TO MONITOR.
[2021-01-19 16:00] VITALS: BP 120/76
--- NOTE | 2021-01-19 19:30 | NUR ---
RECEIVED REPORT FROM AM SHIFT NURSE FOR CONTINUITY OF CARE.AWAKE, ALERT AND ORIENTED.PT NOT IN ANY DISTRESS. PT O2 SAT @98%.
--- NOTE | 2021-01-19 19:38 | NUR ---
PT RESTING IN BED, AAO x4, RESPIRATIONS EVEN AND UL ON 1LNC, O2 SAT 96%. NO SIGNIFICANT CHANGES THROUGHOUT SHIFT. ALL NEEDS MET. CALL LIGHT IN REACH, SAFETY MEASURES IN PLACE. REPORT GIVEN TO PM NURSE.
--- NOTE | 2021-01-19 19:58 | NUR ---
PT SEEN AND ASSESSED. FOUND PT ON 2L NASAL CANNULA WITH SPO2 OF 97%. PT IS IN NO RESPIRATORY DISTRESS AT THIS TIME. WILL CONTINUE TO MONITOR PT.
[2021-01-19 20:00] VITALS: BP 105/73
[2021-01-19] MEDS: guaiFENesin DM 200/20 MG-10 ML 10 ML UDC PO PRN (20:56)
--- NOTE | 2021-01-19 21:00 | NUR ---
DUE MEDICATIONS GIVEN. PT COMPLAINED OF COUGH. GAVE PRN MEDICATION. PT TOLERATED WELL. PT HAS NO OTHER COMPLAINS AT THIS TIME. CALL LIGHT WITHIN REACH.WILL CONTINUE TO MONITOR.
--- NOTE | 2021-01-19 23:30 | NUR ---
PT ASLEEP, VISIBLE CHEST RISE AND FALL.O2 SAT @ 98%.CALL LIGHT WITHIN REACH.WILL CONTINUE TO MONITOR.
[2021-01-20] VITALS: BP 93/58
--- NOTE | 2021-01-20 02:00 | NUR ---
ROUNDS MADE. PT ASLEEP. PT NOT IN ANY DISTRESS.WILL CONTINUE TO MONITOR.
[2021-01-20 04:00] VITALS: BP 121/74
--- NOTE | 2021-01-20 07:00 | NUR ---
PT STABLE.NOT IN ANY DISTRESS AT THIS TIME.NO ACUTE EVENTS THROUGHOUT THE NIGHT.ALL NEEDS ATTENDED. NO COMPLAIN FROM THE PT.CALL LIGHT WITHIN REACH. WILL ENDORSE TO ONCOMING RN FOR CONTINUITY OF CARE.
--- NOTE | 2021-01-20 07:30 | NUR ---
RECEIVED REPORT FROM MECHANICAL ENGINEERING TEACHER FOR CONTINUITY OF CARE. IN BED, HOB ELEVATED, AOX4, ON O2 1.5L NC, WITH SOB ON EXERTION, NO C/O PAIN. AMBULATORY AND CONTINENT. WITH R HAND 24G IV, INTACT/PATENT. CALL LIGHT WITHIN REACH. WILL CONTINUE TO MONITOR.
--- NOTE | 2021-01-20 07:33 | NUR ---
ENDORSED PT TO AM SHIFT NURSE FOR CONTINUITY OF CARE. PT IS STABLE.
[2021-01-20 08:00] VITALS: BP 99/64
--- NOTE | 2021-01-20 08:50 | NUR ---
DUE MEDS GIVEN, TOLERATED WELL
[2021-01-20] MEDS: FUROSEMIDE 40 MG/4 ML VIAL IVP SCH (09:13)
--- NOTE | 2021-01-20 11:15 | NUR ---
PT WAS ABLE TO AMBULATE 50 FEET WITHOUT O2 BEFORE SATURATION DROPPED TO 70s
--- NOTE | 2021-01-20 11:20 | NUR ---
PT BACK IN BED, NO C/O SOB AFTER WALKING. O2SAT STILL AT 80s ON ROOM AIR AND AT REST
--- NOTE | 2021-01-20 11:30 | NUR ---
O2SAT STILL AT 80s ON RA AND AT REST. PLACED BACK O2 AT 1.5L, O2SAT BACK UP TO LOW 90
--- NOTE | 2021-01-20 14:05 | NUR ---
PT REQUESTING TO TALK TO STORE ASSISTANT, WILL CALL SS
--- NOTE | 2021-01-20 14:50 | NUR ---
DC PLANNING PATIENT IS A 50-YEAR-OLD FEMALE ADMITTED ON A 01/14/2021 AT [facility]/ED DUE TO SHORTEST OF BREATH. SW MET WITH PATIENT AT BEDSIDE TO DISCUSS AND GATHER HER COLLATERAL INFORMATION. PATIENT REPORTED LIVING WITH HER 16 YEAR OLD SON AT HER SISTER'S HOME [facility]. PER PATIENT SHE GOT COVID AT ABOUT A YEAR AGO AND END UP HOSPITALIZED FOR ABOUT A MONTH A YEAR AGO. PER PATIENT SHE IS FEELING SHORTNESS OF BREATH FOR A WEEK AND RETURNED TO THE HOSPITAL. PATIENT STATED THAT HER SISTER JAMES KING IS HER EMERGENCY CONTACT. PATIENT REPORTED THAT SHE DO NOT HAVE AN ADVANCE DIRECTIVE AND WAS INTERESTED TO GET INFORMATION PACKET PROVIDED BY SW PATIENT REPORTED NOT HAVING ANY ISSUES GETTING OR TAKING HER MEDICATIONS PRESCRIBED TO HER BY MD. PATIENT STATED THAT SHE DO NOT HAVE ANY DME AT HOME HOWEVER; SHE IS BEEN TOLD THAT SHE NEEDS 02 AND THAT HER EMERGENCY INSURANCE DO NOT COVER HER 02 THEREFORE SHE HAS TALK TO HER SISTER ABOUT THE COST OF $525.00 AND WILL BE DISCUSSING WITH HER FAMILY MEMBERS AND SEE IF THEY CAN HELP PAID FOR EQUIPMENT BY Saturday01/23/21. SW PROVIDED PATIENT WITH INFORMATION ABOUT ADDITIONAL RESOURCES FOR EMERGENCY AND BASIC NEEDS. PATIENT WAS THANKFUL. SW INFORM PATIENT THAT SHE WILL CONTACT HER SISTER JAMES ABOUT 02 EQUIPMENT AND MAKE SURE PATIENT DC WITH ASSISTANCE. PATIENT AGREED FRO SW TO CONTACT HER SISTER AND FRO CM AND SW TO FOLLOW UP WITH EQUIPMENT. SW ALSO DISCUSSED WITH PATIENT THE IMPORTANCE OF FOLLOWING UP WITH MD AFTER HER DC AND INFORMED PATIENT OF HER ALREADY SCHEDULED APPOINTMENT BY [place] WITH [facility] AT [address] [place] [phone] ON 01/30/2021 AT 09:15 AM. PATIENT AGREED TO ATTEND TO SCHEDULED APPOINTMENT. SW CONTACTED PATIENT'S SISTER JAMES KING TO DISCUSS PATIENT'S NEED FOR OXYGEN EQUIPMENT. DISCUSS PATIENT'S INS NOT COVERING FOR EQUIPMENT AND PATIENT NEEDING TO PAID OUT OF PACKET. PATIENT'S SISTER JAMES STATED THAT SHE IS FULLY AWARE OF ISSUE AND WILL BE TALKING TO PATIENT'S SIBLINGS AND ADULT CHILDREN TO GET OXYGEN EQUIPMENT FRO PATIENT. PER SISTER SHE HAS ATTEMPTED TO TALK TO SIBLINGS HOWEVER; HAS NOT BEEN SUCCESSFUL BUT WILL GATHER WITH ALL OF THEM THESE WEEKEND AND WILL FOLLOW UP WITH CM AND FRAN[place] BY SATURDAY. SW AGREED AND WILL FOLLOW UP NEEDED.
[2021-01-20 16:00] VITALS: BP 111/67
--- NOTE | 2021-01-20 16:30 | NUR ---
per dr esquivel, pt can not be discharged yet due to o2 requirement Addendum: 01/20/21 at 1855 by rFank aGlaviz RN PT IS AWARE
--- NOTE | 2021-01-20 18:15 | NUR ---
PT IN BED EATING DINNER, ON 1L O2 NO RESPIRATORY DISTRESS
--- NOTE | 2021-01-20 19:00 | NUR ---
PATIENT RECEIVED AAOX4. SOB NOTED ON EXERTION. OXYGEN WITH SATURATION AT 86%. PATIENT PLACED BACK ON O2 1.5L WITH O2 SAT IMPROVEMENT TO 91%. HEPARIN THERAPY ONGOING WITH NO UNTOWARD BLEEDING NOTED. LEFT HAND 24G IV, INTACT/PATENT. POC AND WHITE COMMUNICATION BOARD UPDATED. BED IN LOW/LOCKED POSITION. CALL LIGHT WITHIN REACH. PT ENCOURAGED TO CALL FOR ANY NEEDS/ASSISTANCE. PATIENT SKIN INTACT. PATIENT SKIN INTACT. RN DISCUSSED WITH PATIENT PLAN OF CARE, FALL AND SAFETY INTERVENTIONS CONTINUED WITH CONTINUED MEDICAL MANAGEMENT. REPORTED DESATURATION WHEN AMBULATING > 50 FEET WITHOUT OXYGEN THERAPY IN PLACE. REINFORCED TO PATIENT TO AVOID SELF AMBULATION WITHOUT NOTIFY STAFF. PATIENT VERBALIZED NEEDS TO STAFF. NO ACUTE DISTRESS NOTED.
[2021-01-20] MEDS: guaiFENesin DM 200/20 MG-10 ML 10 ML UDC PO PRN (21:40)
[2021-01-20 23:43] VITALS: BP 106/72
[2021-01-21 06:58] LABS: BASOPHILS # (AUTO) 0.1 K/uL (0.00-0.22); BASOPHILS % (AUTO) 0.8 % (0.0-2.0); EOSINOPHILS # (AUTO) 0.6 K/uL (0-0.4); EOSINOPHILS % (AUTO) 5.6 % (0.0-4.0); HEMATOCRIT 49.7 % (36-48); HEMOGLOBIN 16.1 g/dL (12.0-16.0); LYMPHOCYTES # (AUTO) 4.2 K/uL (2.5-16.5); LYMPHOCYTES % (AUTO) 39.6 % (20.5-51.1); MEAN CORPUSCULAR HEMOGLOBIN 26 pg (27-31); MEAN CORPUSCULAR HGB CONC 33 g/dL (33-37); MEAN CORPUSCULAR VOLUME 80.3 fL (80-94); MONOCYTES % (AUTO) 9.2 % (1.7-9.3); NEUTROPHILS # (AUTO) 4.8 K/uL (1.8-7.7); NEUTROPHILS % (AUTO) 44.8 % (42.2-75.2); PLATELET COUNT (AUTO) 298 K/uL (140-450); RED BLOOD CELL COUNT(AUTO) 6.19 MIL/uL (4.20-5.40); RED CELL DISTRIBUTION WIDTH 20.5 % (11.6-13.7); WHITE BLOOD COUNT (AUTO) 10.7 K/uL (4.8-10.8)
--- NOTE | 2021-01-21 07:30 | NUR ---
RECEIVED PT ON BED AAOX4. NO SOB NOTED. NO C/O PAIN AT THIS TIME. IV TO LT HAND PATENT AND INTACT. CHEST, DIMINISHED AIR ENTRY TO THE BASES, PT ON OXYGEN AT 1 LITER/MIN WITH SATS AT 96%. ABDOMEN SOFT, BOWEL SOUNDS PRESENT. NO EDEMA NOTED. INSTRUCTED PT TO CALL FOR ASSISTANCE, CALL LIGHT WITHIN REACH, PT VERBALIZED UNDERSTANDING.
[2021-01-21 08:00] VITALS: BP 109/72
[2021-01-21 08:17] LABS: ALBUMIN 3.3 g/dL (3.4-5.0); ANION GAP 14.8 (8-16); CARBON DIOXIDE 27.4 mmol/L (21-32); CREATININE 0.5 mg/dL (0.6-1.3); MAGNESIUM 2.3 mg/dL (1.8-2.4); POTASSIUM 4.2 mmol/L (3.5-5.1); TOTAL BILIRUBIN 0.3 mg/dL (0.0-1.0)
[2021-01-21] MEDS ORDERED: FUROSEMIDE 40 MG TAB PO SCH (09:00)
[2021-01-21] MEDS: POTASSIUM CHLORIDE 10 MEQ TABER PO SCH (09:45)
--- NOTE | 2021-01-21 10:00 | NUR ---
TRIED TITRATING PT'S O2 LEVEL TO .5 LITERS/MIN OXYGEN, PT'S O2 SATURATION DESATURATED TO 87% AT REST AND 84% UPON GETTING OUT IN BED. PLACED PT BACK TO 1 LITER/MIN OXYGEN. PT HAS BEEN USING HER INCENTIVE SPIROMETRY FREQUENTLY. WILL CONTINUE TO MONITOR PT.
[2021-01-21 12:00] VITALS: BP 106/71
--- NOTE | 2021-01-21 12:00 | NUR ---
PT IS BACK TO 1 LITER OF 02 VIA NASAL CANNULA.
[2021-01-21] MEDS: guaiFENesin DM 200/20 MG-10 ML 10 ML UDC PO PRN ×2 (13:52→20:27)
[2021-01-21 16:00] VITALS: BP 105/73
--- NOTE | 2021-01-21 16:00 | NUR ---
PT HAS BEEN ON 1 LITER OXYGEN WITH O2 SATURATION BETWEEN 94-97%. WILL CONTINUE TO MONITOR PT.
--- NOTE | 2021-01-21 19:19 | NUR ---
PT RESTING. NO SOB NOTED. NO SIGNS OF PAIN AT THIS TIME. WILL ENDORSE TO NEXT SHIFT NURSE FOR CONTINUITY OF CARE.
[2021-01-22] VITALS: BP 112/78
[2021-01-22 07:09] LABS: BASOPHILS # (AUTO) 0.1 K/uL (0.00-0.22); BASOPHILS % (AUTO) 0.8 % (0.0-2.0); EOSINOPHILS # (AUTO) 0.5 K/uL (0-0.4); EOSINOPHILS % (AUTO) 5.4 % (0.0-4.0); HEMATOCRIT 49.4 % (36-48); HEMOGLOBIN 15.6 g/dL (12.0-16.0); LYMPHOCYTES # (AUTO) 3.8 K/uL (2.5-16.5); LYMPHOCYTES % (AUTO) 40.8 % (20.5-51.1); MEAN CORPUSCULAR HEMOGLOBIN 25 pg (27-31); MEAN CORPUSCULAR HGB CONC 32 g/dL (33-37); MEAN CORPUSCULAR VOLUME 80.5 fL (80-94); MONOCYTES # (AUTO) 0.8 K/uL (0.8-1.0); MONOCYTES % (AUTO) 8.6 % (1.7-9.3); NEUTROPHILS # (AUTO) 4.2 K/uL (1.8-7.7); PLATELET COUNT (AUTO) 296 K/uL (140-450); RED BLOOD CELL COUNT(AUTO) 6.13 MIL/uL (4.20-5.40); RED CELL DISTRIBUTION WIDTH 20.3 % (11.6-13.7); WHITE BLOOD COUNT (AUTO) 9.4 K/uL (4.8-10.8)
--- NOTE | 2021-01-22 07:30 | NUR ---
RECEIVED PT ON BED AAOX4. NO SOB NOTED. NO C/O PAIN AT THIS TIME. IV TO LT HAND PATENT AND INTACT. CHEST, DIMINISHED AIR ENTRY TO THE BASES, PT ON OXYGEN AT 1 LITER/MIN WITH SATS AT 93%. ABDOMEN SOFT, BOWEL SOUNDS PRESENT. NO EDEMA NOTED. INSTRUCTED PT TO CALL FOR ASSISTANCE, CALL LIGHT WITHIN REACH, PT VERBALIZED UNDERSTANDING.
[2021-01-22 07:40] LABS: ALBUMIN 3.3 g/dL (3.4-5.0); ANION GAP 13.2 (8-16); CARBON DIOXIDE 28.8 mmol/L (21-32); CREATININE 0.4 mg/dL (0.6-1.3); TOTAL BILIRUBIN 0.3 mg/dL (0.0-1.0)
[2021-01-22 08:00] VITALS: BP 102/65
[2021-01-22 08:05] LABS: NEUTROPHILS % (AUTO) 44.4 % (42.2-75.2)
--- NOTE | 2021-01-22 09:35 | NUR ---
PT AMBULATED TOWARDS THE SINK TO BRUSH HER TEETH, ON ROOM AIR TRIAL. PT SEEMED SHORT OF BREATH, 02 SATS ON ROOM AIR AND ON EXERTION WAS 87%. PT HOOKED BACK TO OXYGEN AT 1LPM, PT'S SATS WENT UP TO 93%. TEACHINGS REINFORCED ON THE USE OF INCENTIVE SPIROMETER, PT VERBALIZED UNDERSTANDING
[2021-01-22] MEDS: POTASSIUM CHLORIDE 10 MEQ TABER PO SCH (09:42)
--- NOTE | 2021-01-22 13:05 | NUR ---
PT RESTING. NO SOB NOTED. STILL ON 1 LITER OF O2 WITH 93% O2 SATURATION. ENCOURAGED TO USE THE INCENTIVE SPIROMETRY 10X ON WAKING HOURS. PT VERBALIZED UNDERSTANDING.
[2021-01-22 16:00] VITALS: BP 117/78
[2021-01-22] MEDS: SPIRONOLACTONE 25 MG TAB PO SCH (17:37)
[2021-01-22] MEDS: FUROSEMIDE 40 MG TAB PO SCH (17:38)
--- NOTE | 2021-01-22 19:00 | NUR ---
PT AWAKE. NO SOB NOTED. NO COMPLAINTS MADE. WILL ENDORSE TO NEXT SHIFT NURSE FOR CONTINUITY OF CARE.
--- NOTE | 2021-01-22 19:30 | NUR ---
RECEIVED BEDSIDE REPORT FROM AM SHIFT RN. ON 2L NC, A&0 X4, AMBULATORY, LEFT HAND 22G, SALINE LOCK. SKIN INTACT. SAFETY MEASURES IN PLACE, CALL LIGHT WITHIN REACH, WILL CONTINUE TO MONITOR.
--- NOTE | 2021-01-22 20:24 | NUR ---
ADMINISTERED PT MED. PROVIDED PT WITH A BLANKET AND EXTRA PILLOW. WILL CONTINUE TO MONITOR.
--- NOTE | 2021-01-22 20:41 | NUR ---
PT WAS TAKEN OFF NASAL CANNULA 1L BECAUSE SHE WAS SATURATING ABOVE 90'S, WENT IN PTS ROOM AND DESATTED AROUND 60-70 RANGE. CALLED RT IF I CAN PUT NC BACK ON .PT IS ON NC 1L
--- NOTE | 2021-01-22 20:48 | NUR ---
PT SATTING AT 92% NC 1L
[2021-01-22] MEDS: guaiFENesin DM 200/20 MG-10 ML 10 ML UDC PO PRN (22:58)
--- NOTE | 2021-01-22 22:58 | NUR ---
PATIENT WAS COUGHING. PROVIDED PATIENT WITH PRN ROBITUSSIN. HAS A VOMIT BAG BY BEDSIDE FOR SPUTUM.
--- NOTE | 2021-01-23 01:10 | NUR ---
PATIENT IS ASLEEP, NO SIGNS OF DISTRESS, O2 SAT 96%, PT STABLE. WILL CONTINUE TO MONITOR.
--- NOTE | 2021-01-23 03:40 | NUR ---
PATIENT IS ASLEEP, NO SIGNS OF DISTRESS. PT STABLE. WILL CONTINUE TO MONITOR
[2021-01-23 04:00] VITALS: BP 105/67
--- NOTE | 2021-01-23 06:02 | NUR ---
PATIENT IS AWAKE ON HER PHONE. ASKED IF SHE NEEDED ANYTHING AND SHE SAID SHE WAS DOING FINE. NO SIGNS OF DISTRESS. WILL CONTINUE TO MONITOR. PT STABLE.
[2021-01-23 07:13] LABS: ALBUMIN 3.2 g/dL (3.4-5.0); ANION GAP 9.4 (8-16); CARBON DIOXIDE 30.9 mmol/L (21-32); CREATININE 0.5 mg/dL (0.6-1.3); MAGNESIUM 1.9 mg/dL (1.8-2.4); PHOSPHORUS 3.6 mg/dL (2.5-4.9); POTASSIUM 4.3 mmol/L (3.5-5.1); TOTAL BILIRUBIN 0.4 mg/dL (0.0-1.0)
--- NOTE | 2021-01-23 07:13 | NUR ---
PASSED ON BEDSIDE REPORT TO AM SHIFT RN. PT STABLE.
--- NOTE | 2021-01-23 07:15 | NUR ---
RECEIVED REPORT FROM LABORATORY MILLER NURSE. O2 RUNNING 1L NC. PT RESTING IN BED. NO S/S OF DISTRESS. BREATHING SYMMETRICAL. CALL LIGHT IN REACH ALL SAFETY MEASURES IN PLACE.
[2021-01-23 07:18] LABS: BASOPHILS # (AUTO) 0.1 K/uL (0.00-0.22); EOSINOPHILS # (AUTO) 0.5 K/uL (0-0.4); EOSINOPHILS % (AUTO) 5.6 % (0.0-4.0); HEMATOCRIT 49.5 % (36-48); HEMOGLOBIN 15.8 g/dL (12.0-16.0); LYMPHOCYTES # (AUTO) 3.4 K/uL (2.5-16.5); LYMPHOCYTES % (AUTO) 36.5 % (20.5-51.1); MEAN CORPUSCULAR HEMOGLOBIN 26 pg (27-31); MEAN CORPUSCULAR HGB CONC 32 g/dL (33-37); MEAN CORPUSCULAR VOLUME 81.5 fL (80-94); MONOCYTES # (AUTO) 0.7 K/uL (0.8-1.0); NEUTROPHILS # (AUTO) 4.5 K/uL (1.8-7.7); NEUTROPHILS % (AUTO) 48.9 % (42.2-75.2); PLATELET COUNT (AUTO) 305 K/uL (140-450); RED BLOOD CELL COUNT(AUTO) 6.08 MIL/uL (4.20-5.40); WHITE BLOOD COUNT (AUTO) 9.2 K/uL (4.8-10.8)
[2021-01-23] MEDS: FUROSEMIDE 40 MG TAB PO SCH ×2 (08:19→17:13)
[2021-01-23] MEDS: POTASSIUM CHLORIDE 10 MEQ TABER PO SCH (08:21)
[2021-01-23] MEDS: SPIRONOLACTONE 25 MG TAB PO SCH ×2 (08:21→17:13)
--- NOTE | 2021-01-23 08:37 | NUR ---
PT RESTING IN BED. BREAKFAST AT BEDSIDE. O2 1L NC. MEDICATIONS GIVEN. EDUCATED ON MEDICATIONS GIVEN. PATIENT VERBALIZED UNDERSTANDING. NO S/S OF DISTRESS. BREATHING SYMMETRICAL. CALL LIGHT IN REACH ALL SAFETY MEASURES IN PLACE.
--- NOTE | 2021-01-23 10:35 | NUR ---
SPOKE TO PT ABOUT DISCHARGE PLAN. PT STATED FAMILY FUNDS ARRIVED FOR HOME O2. NOTIFIED CM TO DISCUSS DISCHARGE WITH SISTER ISAÍAS AT [phone]. AWAITING UPDATES FOR DISCHARGE TIME AND HOME O2. CALL LIGHT IN REACH. ALL SAFETY MEASURES IN PLACE.
[2021-01-23] MEDS ORDERED: SPIR25TA PO (10:47)
--- NOTE | 2021-01-23 10:58 | NUR ---
DC PLANNING FRANCHESKA CALLED [facility] AT AND SPOKE TO LORENA TO SCHEDULED A FOLLOW UP APPOINTMENT FOR PATIENT AFTER DC FROM [facility]. LORENA SCHEDULED PATIENT'S FOLLOW UP APPOINTMENT FOR Saturday01/30/21 AT 09:15AM. FRANCHESKA CALLED PATIENT'S SISTER JAMES KING AT TO FOLLOW UP WITH PREVIOUS DISCUSSION ON 01/20/2021 ABOUT GATHERING FUNDS FROM FAMILY MEMBERS TO GET PATIENT'S 02 TODAY AT DISCHARGE FROM [facility]. PER SISTER SHE WAS ABLE TO MEET WITH FAMILY AND GATHER ALL THE MONEY TO PAY FOR HER 02 TO [facility] PROVIDER (BRIT). PATIENT'S SISTER ALSO STATED THAT SHE WILL TALK TO BRIT FROM [facility] AT CELL TODAY TO PAY FOR O2 AND SCHEDULE THE DELIVERY OF HER EQUIPMENT AT HOME WITH PATIENT'S HOME AND REPORTED THAT SHE IS AT WORK NOW UNTIL 16:00 AND WILL BE PICKING UP PATIENT AFTER THAT ABOUT 16:30 TODAY FOR HER DISCHARGE FROM [facility]. FRANCHESKA ALSO DISCUSSED WITH PATIENT'S SISTER JAMES THE IMPORTANCE OF FOLLOWING UP APPOINTMENT SCHEDULED FOR PATIENT BY THESE FAMILY RESOURCE SPECIALIST FOR 01/30/2021 AT 9:15AM TO [address] [facility] [phone] . PATIENT'S SISTER AGREED TO TAKE PATIENT TO HER ALREADY SCHEDULED FOLLOW UP APPOINTMENT AND THANKED FRANCHESKA FOR ASSISTING WITH PATIENT'S CARE. SW ENDED THE CALL AND WILL FOLLOW UP WITH PATIENT NEEDED. CM CONTACT BRIT FROM [facility] AT TO FOLLOW UP WITH PATIENT'S 02 EQUIPMENT PURCHASE AND DELIVERY COORDINATION FOR TODAY BEFORE HER DC FROM [facility]. PER BRIT HE HAD ALREADY WITH PATIENT'S SISTER JAMES WHO PAID AND PURCHASE 02 WHICH WILL BE DELIVER TO PATIENT'S HOME AT ABOUT 3:30 PM. FRANCHESKA MEET WITH PATIENT AT BEDSIDE TO DISCUSS HER DISCHARGE TODAY, INFORMED HER OF HER 02 BEEN PURCHASE BY HER SISTER JAMES AND THAT IT WILL BE DELIVER TO HER HOME TODAY. FRANCHESKA PROVIDED HER WITH AN APPOINTMENT NOTE AND INFORMATION FOR HER UPCOMING APPOINTMENT ON Saturday01/30/21 AT 01:00AM WITH MD. TALAMANTES. PATIENT AGREED AND THANK THIS FAMILY RESOURCE SPECIALIST FOR INFORMATION. Addendum: 01/23/21 at 1141 by Katia Foster CM ENTRY ERROR DUE TO TYPO PATIENT'S SCHEDULED APPOINTMENT IS ON Saturday01/30/2021 AT 9:15AM Addendum: 01/23/21 at 1229 by Katia Foster CM FRANCHESKA CALLED [facility] MD LÓPEZ OFFICE AT SPOKE TO GLORIA SCHEDULED AN OUTPATIENT HEMATOLOGY FOLLOW UP FOR PATIENT FOR 02/02/2021 AT 15:20PM AT [address] [place] [address]. SW MEET WITH PATIENT AGAIN TO DISCUSS AND INFORM HER OF ALREADY SCHEDULED FOLLOW UP APPOINTMENT WITH MD LÓPEZ ON 02/02/2021 AT 15:20 SW PROVIDED PATIENT WITH AN APPOINTMENT NOTE WITH ADDRESS, TIME, DATE, AND DETAIL REMINDERS FOR PATIENT TO FOLLOW UP. PATIENT AGREED TO ATTEND.
[2021-01-23 12:00] VITALS: BP 108/78
--- NOTE | 2021-01-23 12:46 | NUR ---
PT RESTING IN BED. LUNCH AT BEDSIDE. O2 1L NC. NO S/S OF DISTRESS. BREATHING SYMMETRICAL. CALL LIGHT IN REACH ALL SAFETY MEASURES IN PLACE.
--- NOTE | 2021-01-23 15:16 | NUR ---
PT EDUCATED, PROVIDED DC FORMS, AND SIGNED. PT VERBALIZED UNDERSTANDING. NO S/S OF DISTRESS. O2 1L NC. CALL LIGHT IN REACH. ALL SAFETY MEASURES IN PLACE. PT TO BE PICKED UP BY FAMILY AT 1600.
--- NOTE | 2021-01-23 17:05 | NUR ---
SPOKE WITH PT AND FAMILY. PT O2 ARRIVED AT HOME. FAMILY TO [employer] AND RETURN TO TRANSPORT PT WITH O2. NO S/S OF DISTRESS. CALL LIGHT IN REACH. ALL SAFETY MEASURES IN PLACE. IV REMOVED, CANULA INTACT. PT TOLERATED WELL.
--- NOTE | 2021-01-23 17:41 | NUR ---
PT LEFT WITH FAMILY. WHEELED TO FRONT, O2 CONNECTED. 1L NC. PT STABLE.
== END 2021-01-23 17:30 | disposition home or self-care (01) | DRG 194 ==
LOC: MED 11:55 → MTU 13:55 → MIC 19:58 → MTU 01-16 10:05
PROVIDERS: ADMIT General Practice; ATTEND General Practice
DX: I50.41 Acute combined systolic (congestive) and diastolic (congestive) heart failure (principal); J96.01 Acute respiratory failure with hypoxia; E44.1 Mild protein-calorie malnutrition; J18.9 Pneumonia, unspecified organism; I27.20 Pulmonary hypertension, unspecified; R65.10 Systemic inflammatory response syndrome (SIRS) of non-infectious origin without acute organ dysfunction; Z20.822 Contact with and (suspected) exposure to COVID-19; M19.90 Unspecified osteoarthritis, unspecified site; E66.9 Obesity, unspecified; Z90.49 Acquired absence of other specified parts of digestive tract; Z79.899 Other long term (current) drug therapy; Z68.27 Body mass index [BMI] 27.0-27.9, adult
CPT/HCPCS: 36415; 71045; 71250; 76604; 80048; 80053; 83036; 83605; 83735; 83880; 84100; 84443; 84484; 85025; 87040; 87081; 87804; 93005; 94644; 96361; 96365; 96375; 99285; J0696; J1120; J1644; J1940; J7060; Q0092; U0003

== ENCOUNTER 2021-06-30 17:34 | Inpatient (IN) | payer MEDICAID, SELFPAY ==
[~2021-06-30] VITALS: Ht 147.3 cm; Wt 54.4 kg
[~2021-06-30 17:34] MED LIST changes: +CEPH250C16 PO; +FURO-570 PO; +SPIR25TA PO
[2021-06-30 17:41] VITALS: BP 146/102
--- NOTE | 2021-06-30 17:49 | NUR ---
Patient wheelchair assisted to ER bed 1 at this time.
[2021-06-30 18:14] LABS: BASOPHILS # (AUTO) 0.1 K/uL (0.00-0.22); BASOPHILS % (AUTO) 0.9 % (0.0-2.0); EOSINOPHILS # (AUTO) 0.3 K/uL (0-0.4); EOSINOPHILS % (AUTO) 3.5 % (0.0-4.0); HEMATOCRIT 58.3 % (36-48); LYMPHOCYTES # (AUTO) 3.1 K/uL (2.5-16.5); LYMPHOCYTES % (AUTO) 30.7 % (20.5-51.1); MEAN CORPUSCULAR HEMOGLOBIN 28 pg (27-31); MEAN CORPUSCULAR HGB CONC 33 g/dL (33-37); MEAN CORPUSCULAR VOLUME 86.8 fL (80-94); MONOCYTES # (AUTO) 0.8 K/uL (0.8-1.0); MONOCYTES % (AUTO) 8.3 % (1.7-9.3); NEUTROPHILS # (AUTO) 5.7 K/uL (1.8-7.7); NEUTROPHILS % (AUTO) 56.6 % (42.2-75.2); PLATELET COUNT (AUTO) 226 K/uL (140-450); RED BLOOD CELL COUNT(AUTO) 6.72 MIL/uL (4.20-5.40); RED CELL DISTRIBUTION WIDTH 18.4 % (11.6-13.7)
[2021-06-30 18:31] LABS: ANION GAP 13.8 (8-16); CARBON DIOXIDE 25.7 mmol/L (21-32); CREATININE 0.7 mg/dL (0.6-1.3); POTASSIUM 4.5 mmol/L (3.5-5.1)
[2021-06-30 18:37] LABS: ALBUMIN 3.5 g/dL (3.4-5.0); TOTAL BILIRUBIN 0.6 mg/dL (0.0-1.0)
--- NOTE | 2021-06-30 19:18 | NUR ---
RECEIVED REPORT FROM GRACE MORALES
--- NOTE | 2021-06-30 19:20 | NUR ---
PATIENT IN BED RESTING , BED IN LOWEST POSITION AND LOCKED. FIFI BED RAILS UP FOR SAFETY. ALL NEEDS MET AT THIS TIME.
--- NOTE | 2021-06-30 20:23 | NUR ---
MARY COLLECTED AND WALKED TO LAB
[2021-06-30] MEDS ORDERED: AZITHROMYCIN 250 MG TAB PO ONE (20:40)
[2021-06-30] MEDS ORDERED: cefTRIAXone 2,000 MG in DEXTROSE 5% 100 ML IV ONE (20:40)
[2021-06-30] MEDS ORDERED: cefTRIAXone 2,000 MG VIAL ONE (20:44)
[2021-06-30] MEDS ORDERED: LISI2.5T12 PO (21:03)
[2021-06-30] MEDS ORDERED: HYDROcodone/APAP 7.5/325 MG 1 TAB PO PRN (22:05)
[2021-06-30] MEDS ORDERED: ONDANSETRON 4 MG/2 ML VIAL IM/IVP PRN (22:05)
[2021-06-30] MEDS ORDERED: ACETAMINOPHEN 325 MG TAB PO PRN (22:05)
[2021-06-30] MEDS ORDERED: ZOLPIDEM 5 MG TAB PO PRN (22:05)
[2021-06-30] MEDS ORDERED: POTASSIUM CHLORIDE 10 MEQ TABER PO PRN (22:05)
[2021-06-30] MEDS ORDERED: DOCUSATE SODIUM 100 MG GELCAP PO PRN (22:05)
[2021-06-30] MEDS: NACL 0.9% 1,000 ML IV SCH (22:05)
[2021-06-30] MEDS ORDERED: FUROSEMIDE 40 MG/4 ML VIAL IVP SCH (22:10)
--- NOTE | 2021-06-30 22:21 | NUR ---
PT PRESENTS LAYING IN BED, AWAKE AND ALERT, SATING 97% ON 10LPM NRB, RR OF 23, SLIGHTLY LABORED. ANTERIOR AUSCULTATIONS REVEALED BS CLEAR THROUGHOUT, BILATERAL CHEST RISE AND FALL, STRONG PRODUCTIVE COUGH, SPONTANEOUSLY EXPECTORATING WHITE THICK SPUTUM. SHE STATES THAT SOMETIMES THERE ARE PINK STREAKS NOTED IN HER SPUTUM. SHE IS SOB WITH EXCRETION, NO SIGNS OF RESPIRATORY DISTRESS AT THIS TIME, SHE IS BEING ADMITTED TO TELE FLOOR AND WILL CONTINUE TO MONITOR.
--- NOTE | 2021-06-30 22:22 | NUR ---
RT AT BEDSIDE
--- NOTE | 2021-06-30 22:22 | NUR ---
XRAY AT BEDSIDE
[2021-06-30 22:28] LABS: APPEARANCE,URINE CLEAR (CLEAR); BILIRUBIN,URINE NEGATIVE (NEGATIVE); BLOOD, URINE NEGATIVE (NEGATIVE); COLOR,URINE YELLOW (YELLOW); LEUKOCYTE ESTERASE ,URINE NEGATIVE (NEGATIVE); NITRITE, URINE NEGATIVE (NEGATIVE); UGLUCOSE NEGATIVE (NEGATIVE)
[2021-06-30 22:42] LABS: BARBITURATE, URINE NEGATIVE ng/ml (NEG <=200); BENZODIAZEPINE, URINE NEGATIVE ng/mL (NEG <=200); CANNABINOID, URINE NEGATIVE ng/mL (NEG <=50); COCAINE, URINE NEGATIVE ng/mL (NEG <=300); OPIATE, URINE NEGATIVE ng/mL (NEG <=2000); PHENCYCLIDINE SCREEN,URINE NEGATIVE ng/mL (NEG <=25)
[2021-06-30 22:49] LABS: CHOL/HDL RATIO 3.4 (1-4.5); MAGNESIUM 1.8 mg/dL (1.8-2.4); PHOSPHORUS 4.3 mg/dL (2.5-4.9); THYROID STIMULATING HORMONE 0.43 uIU/mL (0.34-3.74)
[2021-06-30 22:55] VITALS: BP 134/101
--- NOTE | 2021-06-30 22:55 | NUR ---
PT RECEIVED FROM ER VIA GURNEY TRANSPORT TO ROOM 123B. PT IS ABLE TO AMBULATE TO THE HOSPITAL BED. DENIES PAIN. IS O X 4, ON 10L NRB, RR 32 AT THIS TIME. VITALS OTHERWISE STABLE. PT DOES HAVE PRODUCTIVE COUGH. SR, LUNGS SOUND CLEAR, BOWEL SOUNDS PRESENT. PT VOIDING (GETTING LASIX DOSE) - URINE SENT FOR UA AND DRUG SCREEN. MRSA NARES SWAB DONE AND SENT TO LAB. ABD SOFT, NON-TENDER, BOWEL SOUNDS PRESENT, LAST BOWEL MOVEMENT 06/30/21. IV TO RT AC 20G, PATENT, STARTED NS AT 60CC. SKIN INTACT. WILL CONTINUE TO MONITOR.
--- NOTE | 2021-06-30 23:08 | NUR ---
Patient will be admitted to care of DR COVARRUBIAS. Admited to TELE. Will go to room. Belongings list completed. Bedside report to GRACE Flores.
[2021-06-30 23:13] LABS: PROTHROMBIN TIME 11.7 secs (10.8-13.4)
[2021-07-01] MEDS: guaiFENesin DM 200/20 MG-10 ML 10 ML UDC PO PRN ×2 (00:07→15:46)
--- NOTE | 2021-07-01 00:10 | NUR ---
SCHEDULED LASIX GIVEN. PT TOLERATED WELL. WILL CONTINUE TO MONITOR.
[2021-07-01] MEDS: ALBUTEROL SULFATE/IPRATROPIU 3 ML SOL IH PRN (02:20)
[2021-07-01 04:00] VITALS: BP 110/84
--- NOTE | 2021-07-01 04:00 | NUR ---
PT ASLEEP. VISIBLE CHEST RISE AND FALL NOTED. ALL PRECAUTIONS IN PLACE. CALL LIGHT WITHIN REACH. WILL CONTINUE TO MONITOR.
--- NOTE | 2021-07-01 06:29 | NUR ---
PT IS STABLE. NO ACUTE EVENTS THROUGHOUT THE NIGHT. NO S/SX OF DISTRESS AT THIS MOMENT. DENIES PAIN. ALL NEEDS MET. ALL PRECAUTIONS IN PLACE. CALL LIGHT WITHIN REACH. WILL CONTINUE TO MONITOR.
[2021-07-01 06:36] LABS: BASOPHILS # (AUTO) 0.1 K/uL (0.00-0.22); BASOPHILS % (AUTO) 0.6 % (0.0-2.0); EOSINOPHILS # (AUTO) 0.4 K/uL (0-0.4); EOSINOPHILS % (AUTO) 3.2 % (0.0-4.0); HEMATOCRIT 55.9 % (36-48); HEMOGLOBIN 18.5 g/dL (12.0-16.0); LYMPHOCYTES # (AUTO) 1.8 K/uL (2.5-16.5); LYMPHOCYTES % (AUTO) 15.4 % (20.5-51.1); MEAN CORPUSCULAR HEMOGLOBIN 29 pg (27-31); MEAN CORPUSCULAR HGB CONC 33 g/dL (33-37); MEAN CORPUSCULAR VOLUME 86.4 fL (80-94); MONOCYTES # (AUTO) 0.9 K/uL (0.8-1.0); MONOCYTES % (AUTO) 7.4 % (1.7-9.3); NEUTROPHILS # (AUTO) 8.5 K/uL (1.8-7.7); NEUTROPHILS % (AUTO) 73.4 % (42.2-75.2); PLATELET COUNT (AUTO) 196 K/uL (140-450); RED BLOOD CELL COUNT(AUTO) 6.47 MIL/uL (4.20-5.40); RED CELL DISTRIBUTION WIDTH 18.3 % (11.6-13.7); WHITE BLOOD COUNT (AUTO) 11.6 K/uL (4.8-10.8)
[2021-07-01 06:50] LABS: ANION GAP 12.2 (8-16); CARBON DIOXIDE 31.2 mmol/L (21-32); CREATININE 0.6 mg/dL (0.6-1.3); POTASSIUM 4.4 mmol/L (3.5-5.1)
--- NOTE | 2021-07-01 07:30 | NUR ---
RECEIVED BEDSIDE REPORT FROM ARBORIST REPRESENTATIVE NURSE FOR CONTINUITY OF CARE. PT IS AWAKE AND ALERT. ON HIGH FLOW NC O2 WITH BREATHING UNLABORED. O2 SAT IS 100%. AMBULATORY INDEPDNENTLY. BEDSIDE COMMODE IN PLACE FOR VOIDING. LAST BM WAS YESTERDAY PER ARBORIST REPRESENTATIVE NURSE. CONTINENT OF THE BOWEL AND BLADDER. SKIN IS WARM, DRY, AND INTACT. IV IS IN THE RIGHT AC 20 GAUGE RUNNING NS AT 60 ML PER HOUR PER ORDER. PT IS STABLE. PLAN OF CARE DISCUSSED.
[2021-07-01 08:00] VITALS: BP 106/73
[2021-07-01] MEDS: PANTOPRAZOLE 40 MG TABEC PO SCH (08:36)
[2021-07-01] MEDS: FUROSEMIDE 20 MG/2 ML VIAL IVP SCH ×2 (08:36→21:03)
--- NOTE | 2021-07-01 09:00 | NUR ---
PT IS SITTING UP IN BED. EATING BREAKFAST AND ON CELL PHONE. NO DISTRESS NOTED AT THIS TIME ON HIGH FLOW NC AT 20 L WITH 90% FIO2. O2 SAT IS 97%. PT DENIES ANY SOB. WILL CONTINUE TO MONITOR.
--- NOTE | 2021-07-01 09:40 | NUR ---
PATIENT HAS BEEN SCREENED AND CATEGORIZED LOW NUTRITION RISK. PATIENT WILL BE SEEN WITHIN 7 DAYS OF ADMISSION. 07/07/[address]
[2021-07-01] MEDS: AZITHROMYCIN 500 MG in DEXTROSE 5% 250 ML IV SCH (10:55)
--- NOTE | 2021-07-01 11:09 | NUR ---
TYLENOL GIVEN PER ORDERED. PT COMPLAINED OF HEADACHE. WILL CONTINUE TO MONITOR.
--- NOTE | 2021-07-01 11:30 | NUR ---
IV WAS INFILTRATED ON THE RIGHT AC. IV WAS REMOVED AND BLEEDING CONTROLLED. NEW IV WAS PLACED IN THE LEFT HAND 22 GAUGE INFUSING ABX ORDERED. NEW IV IS PATENT AND INTACT.
--- NOTE | 2021-07-01 11:40 | NUR ---
MESSAGED DR. COVARRUBIAS TO INFORM HIM THAT THE PT IS COUGHING CONTINUOUSLY, COMPLAINS OF HEADACHE, AND SNEEZING. ASKED IF HE WOULD LIKE TO DO A PCR COVID TEST EVEN THOUGH THE RAPID COVID WAS NEGATIVE. HE AGREED TO PLACE ORDER FOR PCR COVID TEST. DROPLET PRECAUTIONS NOW IN PLACE. WILL SWAB PT SHORTLY.
[2021-07-01 12:00] VITALS: BP 96/63
--- NOTE | 2021-07-01 12:00 | NUR ---
COVID PCR SWABBED AND SENT TO LAB.
[2021-07-01] MEDS: methylPREDNISolone SS 40 MG/ML VIAL IVP SCH ×2 (13:42→21:03)
--- NOTE | 2021-07-01 14:00 | NUR ---
PT IS STABLE. NO DISTRESS AT THIS TIME. TALKING ON THE PHONE TO FAMILY. WILL CONTINUE TO MONITOR.
[2021-07-01] MEDS: NACL 0.9% 1,000 ML IV SCH (14:47)
--- NOTE | 2021-07-01 15:46 | NUR ---
PT WAS COUGHING CONTINUOUSLY AND WAS GIVEN MEDICINE ROBITUSSIN ORDERED. WILL CONTINUE TO MONITOR.
[2021-07-01 16:00] VITALS: BP 95/67
--- NOTE | 2021-07-01 17:00 | NUR ---
PT LYING ON BED, AWAKE. V/S WITHIN NORMAL LIMITS. NO DISTRESS AT THIS TIME. WILL CONTINUE TO MONITOR.
--- NOTE | 2021-07-01 19:12 | NUR ---
ENDORSED PT TO PEARL HAND. PT IS STABLE, NOT IN DISTRESS. DISCUSSED PLAN OF CARE.
--- NOTE | 2021-07-01 19:15 | NUR ---
RECEIVED REPORT FROM MORNING SHIFT RN. PATIENT RESTING ON BED. ON HHF AT 20L AND FIO2 OF 90%, O2 SAT AT 96%. PATIENT ALERT AND AWAKE. NO PAIN COMPLAINTS. IV SITE INTACT ON LH G22 WITH IV FLUIDS OF NS AT 60 ML/HOUR, INFUSING WELL. WILL CONTINUE TO MONITOR PATIENT.
[2021-07-01 20:00] VITALS: BP 103/62
--- NOTE | 2021-07-01 23:16 | NUR ---
PT SLEEPING COMFORTABLY ON HFNC W/ NO DISTRESS NOTED FIO2 TITRATED TO 45% W/ SPO2 98% 5 MIN POST TITRATION WILL CONTINUE TO MONITOR
[2021-07-02] VITALS: BP 100/56
[2021-07-02 04:00] VITALS: BP 106/64
[2021-07-02] MEDS: methylPREDNISolone SS 40 MG/ML VIAL IVP SCH ×3 (05:14→20:17)
[2021-07-02 06:34] LABS: BASOPHILS # (AUTO) 0.1 K/uL (0.00-0.22); BASOPHILS % (AUTO) 0.5 % (0.0-2.0); EOSINOPHILS % (AUTO) 0.1 % (0.0-4.0); HEMATOCRIT 55.5 % (36-48); HEMOGLOBIN 18.3 g/dL (12.0-16.0); LYMPHOCYTES # (AUTO) 1.8 K/uL (2.5-16.5); LYMPHOCYTES % (AUTO) 14.4 % (20.5-51.1); MEAN CORPUSCULAR HEMOGLOBIN 29 pg (27-31); MEAN CORPUSCULAR HGB CONC 33 g/dL (33-37); MEAN CORPUSCULAR VOLUME 86.2 fL (80-94); MONOCYTES # (AUTO) 0.5 K/uL (0.8-1.0); MONOCYTES % (AUTO) 4.2 % (1.7-9.3); NEUTROPHILS # (AUTO) 10.3 K/uL (1.8-7.7); PLATELET COUNT (AUTO) 230 K/uL (140-450); RED BLOOD CELL COUNT(AUTO) 6.44 MIL/uL (4.20-5.40); WHITE BLOOD COUNT (AUTO) 12.8 K/uL (4.8-10.8)
[2021-07-02 07:03] LABS: NEUTROPHILS % (AUTO) 80.8 % (42.2-75.2)
[2021-07-02 07:07] LABS: T4 (THYROXINE) 8.4 ug/dL (4.5-12.0)
[2021-07-02 07:08] LABS: ANION GAP 10.9 (8-16); CARBON DIOXIDE 30.9 mmol/L (21-32); CREATININE 0.5 mg/dL (0.6-1.3); POTASSIUM 4.8 mmol/L (3.5-5.1)
--- NOTE | 2021-07-02 07:15 | NUR ---
RECEIVED BEDSIDE REPORT FROM PEANUT BUTTER MAKER NURSE FOR CONTINUITY OF CARE. PT IS AWAKE AND ALERT. A&OX4. ON HIGH FLOW NC WITH BREATHING UNLABORED. O2 SAT IS 98%. AMBULATORY INDEPENDENTLY. ON TELE MONITOR. BEDSIDE COMMODE FOR VOIDING. CONTINENT OF THE BOWEL AND BLADDER. SKIN IS WARM, DRY, AND INTACT. IV IS IN THE LEFT HAND 22 GAUGE SALINE LOCKED. PT IS STABLE. PLAN OF CARE DISCUSSED.
--- NOTE | 2021-07-02 07:31 | NUR ---
REPORT GIVEN TO MORNING SHIFT NURSE FOR CONTINUITY OF CARE. PATIENT STABLE.
[2021-07-02 08:00] VITALS: BP 124/76
[2021-07-02] MEDS: PANTOPRAZOLE 40 MG TABEC PO SCH (09:11)
[2021-07-02] MEDS: FUROSEMIDE 20 MG/2 ML VIAL IVP SCH ×2 (09:12→20:17)
--- NOTE | 2021-07-02 09:20 | NUR ---
DUE MEDS GIVEN. PT BREATHING PATTERN UNLABORED.WILL CONTINUE TO MONITOR.
[2021-07-02] MEDS: AZITHROMYCIN 500 MG in DEXTROSE 5% 250 ML IV SCH (10:37)
[2021-07-02] MEDS: guaiFENesin DM 200/20 MG-10 ML 10 ML UDC PO PRN ×2 (10:50→22:39)
--- NOTE | 2021-07-02 10:50 | NUR ---
PT REQUESTED FOR COUGH MEDICATION, GAVE ROBITUSSIN PER ORDERED.
--- NOTE | 2021-07-02 11:00 | NUR ---
PT AWAKE, LYING ON HER BED, WATCHING FROM HER PHONE. PT. DENIES PAIN, BREATHING PATTERN UNLABORED. WILL CONTINUE TO MONITOR.
[2021-07-02 12:00] VITALS: BP 100/68
--- NOTE | 2021-07-02 13:00 | NUR ---
PT. ASLEEP, LYING ON HER BED. WOKE PT UP, DUE MEDS GIVEN. PT BREATHING PATTERN UNLABORED. WILL CONTINUE TO MONITOR.
--- NOTE | 2021-07-02 15:00 | NUR ---
PT LYING ON HER BED, AWAKE AND WATCHING ON HER CELLPHONE. PT DENIES PAIN. PT NOT IN DISTRESS.
[2021-07-02 16:00] VITALS: BP 116/77
--- NOTE | 2021-07-02 17:00 | NUR ---
SEEN PT LYING ON HER BED, AWAKE, CONSCIOUS AND COHERENT, ON HER CELLPHONE. PT BREATHING PATTERN UNLABORED. IV LINE INTACT AND PATENT. V/S STILL WITHIN NORMAL LIMITS.
--- NOTE | 2021-07-02 19:20 | NUR ---
GAVE REPORT TO STEAM METER READER NURSE. PT V/S STABLE; BREATHING UNLABORED. DISCUSSED PLAN OF CARE.
[2021-07-02 20:00] VITALS: BP 122/81
[2021-07-03] VITALS (7 sets, daily range): BP systolic 102–128; BP diastolic 59–92
[2021-07-03] MEDS: methylPREDNISolone SS 40 MG/ML VIAL IVP SCH ×3 (05:24→20:24)
[2021-07-03 06:04] LABS: ANION GAP 9.2 (8-16); CARBON DIOXIDE 34.4 mmol/L (21-32); CREATININE 0.6 mg/dL (0.6-1.3); POTASSIUM 4.6 mmol/L (3.5-5.1)
[2021-07-03 06:28] LABS: HEMATOCRIT 55.4 % (36-48); HEMOGLOBIN 18.1 g/dL (12.0-16.0); MEAN CORPUSCULAR HEMOGLOBIN 28 pg (27-31); MEAN CORPUSCULAR HGB CONC 33 g/dL (33-37); MEAN CORPUSCULAR VOLUME 86.5 fL (80-94); PLATELET COUNT (AUTO) 278 K/uL (140-450); RED BLOOD CELL COUNT(AUTO) 6.41 MIL/uL (4.20-5.40); RED CELL DISTRIBUTION WIDTH 18.3 % (11.6-13.7); WHITE BLOOD COUNT (AUTO) 21.3 K/uL (4.8-10.8)
[2021-07-03 07:01] LABS: LYMPHOCYTES % (MANUAL) 5 % (20-46); MONOCYTES % (MANUAL) 2 % (5-12)
--- NOTE | 2021-07-03 07:39 | NUR ---
RECEIVED REPORT FROM THE NIGHT NURSE, PATIENT IN BED, NO SOB, LOOKS COMFORTABLE , NO REGGIE OF DISCOMFORT
[2021-07-03] MEDS: ALBUTEROL SULFATE/IPRATROPIU 3 ML SOL IH PRN ×2 (07:58→13:55)
--- NOTE | 2021-07-03 07:58 | NUR ---
RECEIVED ON A VAPOTHERM HIGH FLOW NASAL CANNULA WITH COMPRESSOR ON PLUGGED INTO RED OUTLET TOLERATING WELL WITHOUT COMPLICATIONS NOTED SATURATION 96% ON FIO2 OF 40% POST HHN THERAPY TITRATED FIO2 TO 35% CARLOS/RN NOTIFIED
[2021-07-03] MEDS: PANTOPRAZOLE 40 MG TABEC PO SCH (08:29)
[2021-07-03] MEDS: FUROSEMIDE 20 MG/2 ML VIAL IVP SCH ×2 (09:00→20:23)
[2021-07-03 10:00] LABS: ANTI-NUCLEAR ANTIBODY,DIRECT Negative (Negative)
[2021-07-03] MEDS: AZITHROMYCIN 500 MG in DEXTROSE 5% 250 ML IV SCH (10:48)
--- NOTE | 2021-07-03 13:55 | NUR ---
SATURATION 94% ON FIO2 OF 35% POST HHN THERAPY TITRATED FIO2 TO 32%; FLOW TO 16 LPM; GOVERNMENT DOCUMENTS LIBRARIAN TO NOTIFY CARLOS/GRACE
--- NOTE | 2021-07-03 14:01 | NUR ---
DR. ARMANDO OZUNA AT BEDSIDE REVIEWED PATIENT PULMONARY STATUS; SPUTUM PRODUCTIONT THIS AM; VAPOTHERM CURRENT SETTINGS WITH FIO2 TITRATION PROGRESS 40% TO 32% WHILE MAINTAINING SATURATION GREATER THAN 92%; HHN FREQUENCY V.O. DR. LAITH BISHOP TO CHANGE FREQUENCY TO Q6WA; IF APPROPRIATE TITRATE OXYGEN DEVICE TO OXYMIZER
--- NOTE | 2021-07-03 14:34 | NUR ---
DC PLANNIN YRS OLD FEMALE PATIENT WAS ADMITTED FROM HOME WITH A DX OF HYPOXIA AND POSSIBLE PULMONARY HYPERTENSION. PATIENT HAS A HX OF HEART FAILURE. CXR SHOWED MILD PULMONARY INTERSTITIAL AND ALVEOLAR EDEMA. CT CHEST NO PE. RAPID COVID TEST NEGATIVE. ADMINISTERED IVF, IV ABX ROCEPHIN, AZITHROMYCIN AND SOLU-MEDROL IV. CONSULTED WITH CARDIO AND PULMO. DC PLAN T9O GO HOME WHEN STABLE. CM TO FOLLOW Addendum: 07/06/21 at 1033 by Mee Reyes RN LATE ENTRY: 07/05/21 1530 CALLED [facility] RESP CARE,STATED SINCE PATIENT IS NOT DIAGNOSED WITH COVID CAN NOT PROVIDE HOME O2, IT HAS TO BE [place]ERMAIN PAY. CM MET PATIENT AT THE BED SIDE EXPLAINED THE SITUATION PT STATED HAS NO JOB, SON DOESN'T WORK EITHER AND WILL ASK FAMILY MEMBER TO COVER THE OXYGEN EXPENSE. NOTIFIED MD. MAHAN TO FOLLOW Addendum: 07/07/21 at 1402 by Deb Lal CM DC PLANNING: THE PATIENTS SISTER JAMES KING ASKED TO SPEAK TO NEGRITO REGARDING HER SISTERS O2 ARRANGEMENTS. SHE ASKED IF WE COULD APPLY FOR DISABILITY FOR HER SISTER, CM AND NURSING EXPLAINED THAT DISABILITY WILL NOT PROVIDE THE INSURANCE COVERAGE NEEDED FOR HOME O2. THE SISTER STATED THAT THE HOME O2 IS EXPENSIVE AND THAT THE FAMILY HAS NO MONEY FOR THIS. NEGRITO EXPLAINED THAT THE PATIENT MAY NEED O2 INTERMEDIATE AND ASKED HER TO SPEAK WITH HER FAMILY REGARDING THE PLAN FOR HER SISTERS MANAGEMENT. THE PATIENT HAS BEEN DESATTING TO THE LOW 80'S, PER MD CAN DC WHEN PATIENT IS STABLE AT 88% OR ABOVE. NEGRITO WILL FOLLOW. Addendum: 07/10/21 at 1202 by Deb Lal CM DC PLANNING: PATIENT NOW WITH RESTRICTED M/BRADLY, O2 SATS ON RA 86% PER RT. NEGRITO SPOKE WITH SHIRLEY AT [facility] ([phone]) AND FAXED O2 ORDERS AND CLINICAL PACKET. SHIRLEY WILL CALL TO CONFIRM IF PATIENT HAS COVERAGE UNDER HER NEW M/BRADLY, NEGRITO WILL FOLLOW. Addendum: 07/10/21 at 6874 by Deb Lal CM DC PLANNING: PATIENTS O2 STILL NOT COVERED UNDER HER CURRENT PRESUMPTIVE/RESTRICTED M/BRADLY AND PATIENT CONTINUES TO STATE THAT SHE CAN'T PAY FOR IT OUT OF POCKET. CM NOTIFIED CHARGE NURSE EMERSON THAT PATIENT WILL DC HOME WITHOUT O2 A DC ORDER HAS BEEN ENTERED. CM WILL FOLLOW.
[2021-07-03] MEDS: ALBUTEROL SULFATE/IPRATROPIU 3 ML SOL IH SCH (18:57)
--- NOTE | 2021-07-03 19:17 | NUR ---
GIVEN REPORT TO THE NIGHT NURSE, PATIENT RESTING IN BED,SEEMS COMFORTABLE [id number]
--- NOTE | 2021-07-03 19:42 | NUR ---
RECEIVED REPORT FROM CARLOS EDWARDS FOR CONTINUITY OF CARE. PATIENT WAS OBSERVED IN BED ON 16LITER OF OXYGEN FIO2 AT 32%. BREATHING OBSERVED EVEN AND UNLABORED NO S/S OF RESPIRATORY DISTRESS.IV SITE CLEAN AND PATENT ON LEFT HAND WITH 22GAGE WITH NORMAL SALINE AT 80ML/PER HOUR. SKIN INTACT. PATIENT IS AMBULATORY TO BATHROOM WITH MINIMAL ASSISTANCE. SKIN WAS REPORTED INTACT. PATIENT IS BULGARIAN SPEAKING. BULGARIAN SPEAKING NURSE ZOHAIB MEADE SPOKE TO PATIENT TO USE CALL LIGHT FOR ASSISTANCE. PATIENT EXPLAINED SHE DOES NOT LIKE USING THE BEDSIDE COMMODE AND PERFERS THE BATHROOM SO WHEN SHE CALLS AND POINTS TO IV, PLEASE DISCONNECT. SAFETY MEASURES ARE AVAILABLE. BED LOWERED CALL LIGHT IN REACH. PATIENT WAS ENCOURAGED TO CALL FOR ASSISTANCE FOR ANY NEEDS/ASSISTANCE. WILL CONTINUE TO MONITOR. [id number]
--- NOTE | 2021-07-03 19:45 | NUR ---
PATIENT PLAN OF CARE DISCUSSED AND REVIEWED WITH DESHAUN PATEL.
--- NOTE | 2021-07-03 22:00 | NUR ---
PATIENT IN BED ASLEEP. NOTED GRANT CATH WITH CLEAR PALE YELLOW URINE OUTPUT. NO COMPLAINTS OF PAIN/DISCOMFORT. IV SITE CLEAN PATENT AND OPEN. ALL MEDICATION WERE GIVEN PER ORDERS AND CARE PLAN. NURSING WILL CONTINUE TO MONITOR AND FOLLOW THE PLAN OF CARE. [email or web address]
[2021-07-04] VITALS: BP 103/66
--- NOTE | 2021-07-04 | NUR ---
PATIENT VITALS SIGNS TABLE, AFEBRILE, SATING 94% ON HF O2 16L, FIO2-32%. NO COMPLAIN AT THIS TIME AND NOT IN ANY DISTRESS. WILL CONTINUE POC AND MONITORING.
[2021-07-04] MEDS: guaiFENesin DM 200/20 MG-10 ML 10 ML UDC PO PRN (00:10)
--- NOTE | 2021-07-04 02:00 | NUR ---
PATIENT ASLEEP AT THIS TIME. VISIBLE CHEST RISE AND FALL NOTED. NOT IN ANY DISTRESS. WILL CONTINUE POC.
[2021-07-04 04:00] VITALS: BP_SYST 107; BP_SYST 127; BP_DIAS 60; BP_DIAS 66
[2021-07-04] MEDS: methylPREDNISolone SS 40 MG/ML VIAL IVP SCH ×2 (04:27→12:14)
--- NOTE | 2021-07-04 05:43 | NUR ---
PATIENT IN BED ASLEEP. NO NOTED RESPIRATORY DISTRESS. EVEN ANS UNLABORED BREATHS WITH NASAL CANULA IN PLACE. WE WILL CONTINUE TO MONITOR UNTIL CHANGE OF SHIFT AND ENDORSE TO THE AM NURSE. [email or web address]
[2021-07-04 06:00] LABS: BASOPHILS % (AUTO) 0.1 % (0.0-2.0); HEMATOCRIT 53.9 % (36-48); HEMOGLOBIN 17.5 g/dL (12.0-16.0); LYMPHOCYTES # (AUTO) 1.5 K/uL (2.5-16.5); MEAN CORPUSCULAR HEMOGLOBIN 28 pg (27-31); MEAN CORPUSCULAR HGB CONC 33 g/dL (33-37); MEAN CORPUSCULAR VOLUME 86.3 fL (80-94); MONOCYTES # (AUTO) 0.7 K/uL (0.8-1.0); MONOCYTES % (AUTO) 4.2 % (1.7-9.3); NEUTROPHILS % (AUTO) 86.7 % (42.2-75.2); PLATELET COUNT (AUTO) 262 K/uL (140-450); RED BLOOD CELL COUNT(AUTO) 6.25 MIL/uL (4.20-5.40); RED CELL DISTRIBUTION WIDTH 17.8 % (11.6-13.7); WHITE BLOOD COUNT (AUTO) 16.2 K/uL (4.8-10.8)
[2021-07-04 06:10] LABS: ANION GAP 8.1 (8-16); CARBON DIOXIDE 36.1 mmol/L (21-32); CREATININE 0.5 mg/dL (0.6-1.3); POTASSIUM 4.2 mmol/L (3.5-5.1)
--- NOTE | 2021-07-04 06:51 | NUR ---
NO ACUTE EVENT THROUGHOUT THE NIGHT. PATIENT STABLE. NO SIGN AND SYMPTOMS OF DISTRESS NOTED AT THIS TIME. NO COMPLAIN FROM THE PATIENT. ALL NEEDS ATTENDED. CALL LIGHT WITHIN REACH. WILL ENDORSE THE PATIENT TO THE ONCOMING RN FOR CONTINUITY OF CARE.
--- NOTE | 2021-07-04 07:25 | NUR ---
ENDORSED PATIENT TO DAY NURSE FOR CONTINUITY OF CARE. PATIENT STABLE. SIGNING OFF.
[2021-07-04] MEDS: ALBUTEROL SULFATE/IPRATROPIU 3 ML SOL IH SCH ×3 (07:28→19:30)
--- NOTE | 2021-07-04 07:33 | NUR ---
FIO2 TITRATED TO 30% ON HIGH FLOW NC. WILL CONTINUE TO MONITOR. Addendum: 07/04/21 at 0829 by Melvin Robles RT KARSTEN NOTIFIED OF FIO2 TITRATION
[2021-07-04 08:00] VITALS: BP 107/66
[2021-07-04] MEDS: PANTOPRAZOLE 40 MG TABEC PO SCH (09:30)
[2021-07-04] MEDS: FUROSEMIDE 20 MG/2 ML VIAL IVP SCH ×2 (09:30→20:46)
[2021-07-04] MEDS: AZITHROMYCIN 500 MG in DEXTROSE 5% 250 ML IV SCH (09:42)
--- NOTE | 2021-07-04 09:44 | NUR ---
RESTING COMFORTABLY GOOD CHEST RISE AND AERATION THROUGHOUT BILATERAL LUNG MCMAHON TOLERATING VAPOTHERM HIGH FLOW NASAL CANNULA WITHOUT COMPLICATIONS SATURATION 94% ON FOI2 OF 30% TITRATED FIO2 TO 28% AZMARA/RN NOTIFIED
[2021-07-04 09:55] LABS: ANTI DOUBLE STRANDED DNA AB <1 IU/mL (0 - 9)
--- NOTE | 2021-07-04 13:42 | NUR ---
SATURATION 91% ON FIO2 OF 28% VIA VAPOTHERM HIGH FLOW NASAL CANNULA POST HHN THERAPY CHANGED OXYGEN DEVICE TO A CURAPLEX NASAL CANNULA AT 3 LPM WITH HUMIDIFIER SEPHORA OPERATIONS CONSULTANT TO MONITOR AND TITRATE FIO2 TOLERATED CARLOS/GRACE NOTIFIED
--- NOTE | 2021-07-04 14:20 | NUR ---
07/04/21 RD INITIAL ASSESSMENT COMPLETED PLEASE REFER TO NUTRITION ASSESSMENT UNDER CARE ACTIVITY FOR ESTIMATED NUTRITIONAL NEEDS. 1. RECOMMEND CARDIAC + CCHO 60GM DIET 2. MONITOR BLOOD GLUCOSE LEVELS 3. RD TO FOLLOW-UP 3-5 DAYS, MODERATE RISK VILMA CORNEJO, RD
[2021-07-04 15:58] VITALS: BP 124/85
--- NOTE | 2021-07-04 19:51 | NUR ---
RECEIVED REPORT FROM AM NURSE, DAYS EVENTS DISCUSSED. REVIEWED POC FOR CONTINUITY OF CARE.
--- NOTE | 2021-07-04 19:52 | NUR ---
REPORT GIVEN TO THE NIGHT NURSE.
[2021-07-04 20:00] VITALS: BP 108/64
--- NOTE | 2021-07-04 21:00 | NUR ---
HS MEDS GIVEN. PT A HS MEDS GIVEN. PT A&OX4. PT UP ADLIB TO BATHROOM. O2 3L/NC O2 SAT95%. SPUTUM SPECIMEN SENT ON DAYS BUT NOT ENOUGH . ANOTHER SPECIMEN NEEDED. RT EXPLAINED PROCEDURE TO PT. SO FAR NO SPUTUM. ALL SAFETY MEASURES IN PLACE. WILL CONTINUE TO MONITOR. Addendum: 07/05/21 at 0347 by Tasia Bradley RN HS MEDS GIVEN. PT UP AD LUIS TO BATHROOM. O2 ON @3L/NC. O2 SAT95%. SPUTUM SPECIMEN SENT ON DAY SHIFT BUT NOT ENOUGH. ANOTHER SPECIMEN NEEDED. RT EXPLAINED THE PROCEDURE TO THE PT. SO FAR NO SPUTUM. ALL SAFETY MEASURES IN PLACE. WILL CONTINUE TO MONITOR. Addendum: 07/05/21 at 0358 by Tasia Bradley RN 07/04/2021 2100; HS MEDS GIVEN. PT UP AD LUIS TO BATHROOM. O2 ON @3L/NC. O2 SAT 95 07/04/20212099 HS MEDS GIVEN. PT UP AD LUIS TO BATHROOM. O2 ON @3L/NC. O2 SAT IS 95%. SPUTUM COLLECTED ON DAYS BUT NOT ENOUGH. ANOTHER NEEDED. RT IN TO EXPLAIN PROCEDURE. NO SPUTUM YET.
[2021-07-05] VITALS: BP 108/66
[2021-07-05 04:00] VITALS: BP 102/64
[2021-07-05 05:39] LABS: BASOPHILS % (AUTO) 0.2 % (0.0-2.0); EOSINOPHILS # (AUTO) 0.2 K/uL (0-0.4); HEMATOCRIT 54.8 % (36-48); HEMOGLOBIN 17.8 g/dL (12.0-16.0); LYMPHOCYTES # (AUTO) 3.1 K/uL (2.5-16.5); LYMPHOCYTES % (AUTO) 25.6 % (20.5-51.1); MEAN CORPUSCULAR HEMOGLOBIN 28 pg (27-31); MEAN CORPUSCULAR HGB CONC 32 g/dL (33-37); MEAN CORPUSCULAR VOLUME 87.1 fL (80-94); MONOCYTES # (AUTO) 1.4 K/uL (0.8-1.0); MONOCYTES % (AUTO) 11.1 % (1.7-9.3); NEUTROPHILS # (AUTO) 7.5 K/uL (1.8-7.7); NEUTROPHILS % (AUTO) 61.1 % (42.2-75.2); PLATELET COUNT (AUTO) 252 K/uL (140-450); RED BLOOD CELL COUNT(AUTO) 6.29 MIL/uL (4.20-5.40); WHITE BLOOD COUNT (AUTO) 12.3 K/uL (4.8-10.8)
[2021-07-05 06:12] LABS: ANION GAP 6.4 (8-16); CARBON DIOXIDE 38.5 mmol/L (21-32); CREATININE 0.5 mg/dL (0.6-1.3); POTASSIUM 3.9 mmol/L (3.5-5.1)
[2021-07-05 06:25] LABS: ANTI-NUCLEAR ANTIBODY TITER NEGATIVE (Negative)
[2021-07-05] MEDS: ALBUTEROL SULFATE/IPRATROPIU 3 ML SOL IH SCH ×3 (07:15→19:49)
--- NOTE | 2021-07-05 07:50 | NUR ---
ENDORSED REPORT TO AM NURSE. PT FRENCH SPEAKING. UNDERSTANDS A LITTLE ISRAELI. ABLE TO MAKE NEEDS KNOWN. PT A&OX4 NO SOB. ON O2 2L/NC W/HUMIDIFIER. DENIES PAIN. LFA#22G IV SL. ENCOURAGED DEEP BREATHING FOR SPUTUM COLLECTION. UNABLE TO COLLECT SPECIMEN. ALL NEEDS MET AT THIS TIME. ALL SAFETY MEASURES IN PLACE.
[2021-07-05 08:00] VITALS: BP 103/68
--- NOTE | 2021-07-05 08:01 | NUR ---
RECEIVED REPORT FROM [facility]. PT EGYPTIAN SPEAKING. UNDERSTANDS LITTLE LUX[place]BOURGISH. PT AWAKE AND ALERT. NO SOB NOTED. ON 2L NC WITH HUMIDIFIER. DENIES PAIN. L FA #22 SL. ENCOURAGE DEEP BREATHING FOR SPUTUM COLLECTION. UNABLE TO COLLECT. NEEDS ALL MET AT THIS TIME. SAFETY MEASURES IN PLACE. WILL CONTINUE TO MONITOR CLOSELY.
[2021-07-05] MEDS: PANTOPRAZOLE 40 MG TABEC PO SCH (08:37)
[2021-07-05] MEDS: predniSONE 20 MG TAB PO SCH (08:38)
[2021-07-05] MEDS: FUROSEMIDE 20 MG/2 ML VIAL IVP SCH ×2 (08:38→21:29)
[2021-07-05] MEDS: AZITHROMYCIN 500 MG in DEXTROSE 5% 250 ML IV SCH (10:00)
--- NOTE | 2021-07-05 11:00 | NUR ---
NO ADVERSE REACTIONS TO ANTIBIOTIC'S. DENIES PAIN. ON 2L NC WITH HUMIDIFIER. NO SOB NOTED. NEEDS ALL MET AT THIS TIME. SAFETY MEASURES IN PLACE. HOURLY ROUNDS CONDUCTED.
[2021-07-05 12:00] VITALS: BP 113/73
--- NOTE | 2021-07-05 12:28 | NUR ---
CONTACTED REGARDING NO ACCUCHECK ORDERS. BLOOD GLUCOSE VIA ACCUCHECK @ 165. AWAITING RESPONSE.
[2021-07-05] MEDS ORDERED: DEXTROSE 50% 50 ML SYR IVP PRN (14:15)
--- NOTE | 2021-07-05 15:52 | NUR ---
PT AMBULATING UP AND DOWN HALLWAY. NO SOB NOTED. RR EVEN & UNLABORED. SAFETY MEASURES IN PLACE. WILL CONTINUE TO MONITOR.
[2021-07-05 16:00] VITALS: BP 115/75
[2021-07-05] MEDS: BLOOD GLUCOSE MONITORING 1 DEV DEV FS SCH ×2 (16:16→21:26)
[2021-07-05] MEDS: INSULIN LISPRO SLIDING SCALE 100 UNITS/ML VIAL SUBQ PRN ×2 (16:17→21:31)
--- NOTE | 2021-07-05 19:10 | NUR ---
RECEIVED REPORT FROM MORNING SHIFT NURSE. PATIENT RESTING ON BED. NO PAIN COMPLAINTS. O2 AT 2L/NC, BREATHING EVEN AND [id number]. WILL CONTINUE TO MONITOR PATIENT.
--- NOTE | 2021-07-05 19:39 | NUR ---
REPORT GIVEN TO NIGHTSHIFT. POC DISCUSSED.
--- NOTE | 2021-07-05 19:49 | NUR ---
PT PRESENTS LAYING IN BED AWAKE AND COOPERATIVE, ANTERIOR AUSCULTATION REVEALED BS CLEAR/ DIMINISHED THROUGHOUT LEFT LOBES ; CLEAR RUL AND RML, CLEAR/DIMINISHED RLL, STRONG PRODUCTIVE COUGH, NO SIGNS OF RESPIRATORY DISTRESS NOTED AT THIS TIME. PT IS CURRENTLY SATING 93% ON 3LPM NC WITH BUBBLE HUMIDIFIER. PT MENTIONED SHE WALKS AROUND WITH NO OXYGEN WITH EPISODES OF DESATURATION. I EXPLAINED TO HER THE COMPLICATIONS OF NOT WEARING THE NASAL CANNULA AND INSTRUCTED HER TO NOT TAKE IT OFF. ADMINISTERED HHN TX AT THIS TIME VIA SVN WITH MASK; SOB IMPROVED. WILL CONTINUE TO MONITOR.
[2021-07-05 20:00] VITALS: BP 112/67
--- NOTE | 2021-07-06 06:20 | NUR ---
NEW IV SITE INSERTED ON LEFT FOREARM G22. PATIENT TOLERATED IT WELL. PREVIOUS IV SITE REMOVED, TIP INTACT. BS CHECKED, NO INSULIN COVERAGE NEEDED.
[2021-07-06 06:32] LABS: BASOPHILS % (AUTO) 0.2 % (0.0-2.0); EOSINOPHILS # (AUTO) 0.4 K/uL (0-0.4); EOSINOPHILS % (AUTO) 4.1 % (0.0-4.0); HEMATOCRIT 53.8 % (36-48); HEMOGLOBIN 17.3 g/dL (12.0-16.0); LYMPHOCYTES # (AUTO) 3.1 K/uL (2.5-16.5); LYMPHOCYTES % (AUTO) 33.8 % (20.5-51.1); MEAN CORPUSCULAR HEMOGLOBIN 28 pg (27-31); MEAN CORPUSCULAR HGB CONC 32 g/dL (33-37); MEAN CORPUSCULAR VOLUME 87.2 fL (80-94); MONOCYTES % (AUTO) 10.3 % (1.7-9.3); NEUTROPHILS # (AUTO) 4.8 K/uL (1.8-7.7); NEUTROPHILS % (AUTO) 51.6 % (42.2-75.2); PLATELET COUNT (AUTO) 263 K/uL (140-450); RED BLOOD CELL COUNT(AUTO) 6.17 MIL/uL (4.20-5.40); RED CELL DISTRIBUTION WIDTH 18.1 % (11.6-13.7); WHITE BLOOD COUNT (AUTO) 9.3 K/uL (4.8-10.8)
[2021-07-06 06:38] LABS: ANION GAP 6.6 (8-16); CARBON DIOXIDE 37.1 mmol/L (21-32); CREATININE 0.5 mg/dL (0.6-1.3); POTASSIUM 3.7 mmol/L (3.5-5.1)
[2021-07-06] MEDS: ALBUTEROL SULFATE/IPRATROPIU 3 ML SOL IH SCH ×3 (07:30→19:09)
[2021-07-06] MEDS: BLOOD GLUCOSE MONITORING 1 DEV DEV FS SCH ×3 (07:30→20:57)
[2021-07-06 08:00] VITALS: BP 149/74
[2021-07-06] MEDS: PANTOPRAZOLE 40 MG TABEC PO SCH (08:50)
[2021-07-06] MEDS: predniSONE 20 MG TAB PO SCH (08:51)
[2021-07-06] MEDS: FUROSEMIDE 20 MG/2 ML VIAL IVP SCH (08:53)
--- NOTE | 2021-07-06 10:33 | NUR ---
PLACED PATIENT ON ROOM AIR FOR EVALUATION - PATIENT WAS ON ROOM AIR FOR APPROXIMATELY 5 MIN.- SATURATIONS NOTED AT 81-82 WHILE LAYING ON HER LEFT SIDE ON ROOM AIR - RN NOTIFIED OF ROOM AIR CHALLENGE AND SATURATIONS - PATIENT WAS PLACED BACK ON NC AFTER ROOM AIR CHALLENGE.
[2021-07-06 16:00] VITALS: BP 169/65
[2021-07-06] MEDS: INSULIN LISPRO SLIDING SCALE 100 UNITS/ML VIAL SUBQ PRN ×2 (16:32→21:01)
--- NOTE | 2021-07-06 19:09 | NUR ---
PT PRESENTS AMBULATING IN ROOM ON NC 3LPM SATING 89 - 91%, ANTERIOR AUSCULTATION REVEALED BS CLEAR/ DIMINISHED THROUGHOUT ALL LUNG MCMAHON, STRONG PRODUCTIVE COUGH, NO SIGNS OF RESPIRATORY DISTRESS NOTED AT THIS TIME. PT MENTIONED SHE WALKS AROUND WITH NO OXYGEN WITH EPISODES OF DESATURATION. I EXPLAINED TO HER THE COMPLICATIONS OF NOT WEARING THE NASAL CANNULA AND INSTRUCTED HER TO NOT TAKE IT OFF. AIR CHALLENGE WAS DONE DURING DAY SHIFT AND SHE FAILED. ADMINISTERED HHN TX AT THIS TIME VIA SVN WITH MASK; SOB IMPROVED. WILL CONTINUE TO MONITOR.
--- NOTE | 2021-07-06 19:23 | NUR ---
RECEIVED PATIENT FROM AM NURSE FOR CONTINUITY OF CARE. PT IS STABLE.
--- NOTE | 2021-07-06 20:00 | NUR ---
Patient's Plan of Care was discussed and reviewed with DESHAUN ASHBY
--- NOTE | 2021-07-06 21:00 | NUR ---
BLO0D GLUCOSE CHECK,294 ,6 UNITS OF INSULIN ADMINISTERED,
[2021-07-07] VITALS: BP 120/77
--- NOTE | 2021-07-07 | NUR ---
PATIENT ASLEEP ,BREATHING EVEN AND UNLABORED ,NO DISTRESS NOTED
--- NOTE | 2021-07-07 03:00 | NUR ---
SLEEPING AT THIS TIME, BREATHING EVEN AND UNLABORED,NO DISTRESS NOTED.
[2021-07-07 05:54] LABS: BASOPHILS % (AUTO) 0.1 % (0.0-2.0); EOSINOPHILS # (AUTO) 0.5 K/uL (0-0.4); EOSINOPHILS % (AUTO) 4.4 % (0.0-4.0); HEMATOCRIT 53.8 % (36-48); LYMPHOCYTES # (AUTO) 3.4 K/uL (2.5-16.5); LYMPHOCYTES % (AUTO) 31.4 % (20.5-51.1); MEAN CORPUSCULAR HEMOGLOBIN 29 pg (27-31); MEAN CORPUSCULAR HGB CONC 33 g/dL (33-37); MEAN CORPUSCULAR VOLUME 86.3 fL (80-94); MONOCYTES # (AUTO) 0.9 K/uL (0.8-1.0); MONOCYTES % (AUTO) 8.7 % (1.7-9.3); NEUTROPHILS % (AUTO) 55.4 % (42.2-75.2); PLATELET COUNT (AUTO) 258 K/uL (140-450); RED BLOOD CELL COUNT(AUTO) 6.23 MIL/uL (4.20-5.40); RED CELL DISTRIBUTION WIDTH 17.9 % (11.6-13.7); WHITE BLOOD COUNT (AUTO) 10.8 K/uL (4.8-10.8)
--- NOTE | 2021-07-07 06:00 | NUR ---
PATIENT AWAKE ,ABLE TO AMBULATE TO THE BATHROOM WITHOUT SOB
[2021-07-07 06:32] LABS: CREATININE 0.6 mg/dL (0.6-1.3); POTASSIUM 3.7 mmol/L (3.5-5.1)
[2021-07-07] MEDS: BLOOD GLUCOSE MONITORING 1 DEV DEV FS SCH ×4 (06:46→21:00)
[2021-07-07 07:03] LABS: ANION GAP 9.4 (8-16); CARBON DIOXIDE 33.3 mmol/L (21-32)
--- NOTE | 2021-07-07 07:25 | NUR ---
RECEIVED REPORT FROM AUDITOR/QUALITY NURSE. PT IS AWAKE LYING ON HER BED. A&OX4. PT ON 3L O2 NC, BREATHING UNLABORED.PT IS AMBULATORY, CONTINENT OF THE BOWEL AND BLADDER. LAST BM WAS YESTERDAY. IV ON LEFT FA, 22G SALINE LOCKED. SKIN IS INTACT AND WARM. DISCUSSED PLAN OF CARE. WILL CONTINUE TO MONITOR.
[2021-07-07] MEDS: ALBUTEROL SULFATE/IPRATROPIU 3 ML SOL IH SCH ×3 (07:30→19:10)
[2021-07-07 08:00] VITALS: BP 111/76
[2021-07-07] MEDS: PANTOPRAZOLE 40 MG TABEC PO SCH (09:27)
[2021-07-07] MEDS: predniSONE 20 MG TAB PO SCH (09:28)
[2021-07-07] MEDS: FUROSEMIDE 40 MG TAB PO SCH (09:28)
--- NOTE | 2021-07-07 10:00 | NUR ---
PT SITTING ON HER BED, AWAKE AND COHERENT. ON 3L O2 NC, WITH BREATHING UNLABORED. WILL CONTINUE TO MONITOR.
--- NOTE | 2021-07-07 11:00 | NUR ---
SPOKE TO DR. KIM AND INFORMED PT. PT SHOULD STAY ABOVE 88% WITH AMBULATION BEFORE DISCHARGE. RM AIR TRIAL WITH PT SITTING IN BED AND TALKING, PT DROPPED TO LOW 80'S BY 10 MINUTES. NO AMBULATION ATTEMPTED WITHOUT 02 AT THIS TIME. MD NOTIFIED, NO DISCHARGE WILL BE ORDERED
--- NOTE | 2021-07-07 11:05 | NUR ---
placed patient on room air to evaluate her saturations when walking around her bed. patient was initially saturating well but then started to dip on her saturations. after informing rn of oxygen challenge and returning to patient's room - patient was found to be saturating in the 70s. patient had gone to bathroom and walked back to her bed - rn stated she had attempted room air challenge earlier with the same result. placed patient back on her nasal cannula and informed rn.
--- NOTE | 2021-07-07 13:00 | NUR ---
PT FOUND AMBULATING IN ROOM WITHOUT O2. PT DESATING TO 74-76%. PT PUT BACK ON O2. PT SHOWS NO S/S OF DISTRESS OR RESPIRATORY STRUGGLE WITHOUT O2. SPOKE TO PT SISTER AND PAT NEGRITO. PT HAS NO INSURANCE. NO HOME O2 HAS BEEN FOUND, CM IS STILL CALLING OTHER COMPANIES. PT FAMILY TO DISCUSS FINANCIAL PLAN FOR HOME O2 AT DISCHARGE. NO S/S OF DISTRESS. CALL LIGHT IN REACH. ALL SAFETY MEASURES IN PLACE
--- NOTE | 2021-07-07 13:30 | NUR ---
PT WAS WALKING IN HALLWAY WITHOUT O2. PT WAS INSTRUCTED BY CHARGE NURSE TO REMOVE O2 FOR WALK. PT RECONNECTED TO O2 MONITOR ADD ACCOMPANIED FOR REMAINDER OF WALK. PT DESAT TO LOW 70'S AND RETURNED TO ROOM AND O2 WAS REAPPLIED. NO S/S OF DISTRESS. CALL LIGHT IN REACH. ALL SAFETY MEASURES IN PLACE. RT TO SEE PT
--- NOTE | 2021-07-07 13:36 | NUR ---
FOUND PATIENT WALKING UP AND DOWN THE HALLWAY SATURATING IN THE 70S, PATIENT PLACED BACK ON OXYGEN AFTER BREATHING TREATMENT AND INFORMED RN.
[2021-07-07 16:00] VITALS: BP 99/57
--- NOTE | 2021-07-07 17:58 | NUR ---
NOTIFIED MD OF ABG RESULTS. PT DESATURATED TO 70-76% ON RM AIR WHILE SITTING IN BED. ABG OBTAINED WHILE ON RM AIR. NO S/S OF DISTRESS. CALL LIGHT IN REACH. ALL SAFETY MEASURES IN PLACE. PT ON 3L NC
--- NOTE | 2021-07-07 19:34 | NUR ---
ENDORSED PT TO SOAKERS SUPERVISOR
--- NOTE | 2021-07-07 19:35 | NUR ---
RECEIVED PT FROM AM NURSE FOR CONTINUITY OF CARE, PT IS STABLE
[2021-07-07] MEDS: INSULIN LISPRO SLIDING SCALE 100 UNITS/ML VIAL SUBQ PRN (19:41)
--- NOTE | 2021-07-07 21:35 | NUR ---
PATIENT IN BED ,NO SOB NOTED ,BLD GLUCOSE LEVEL AT 128.
--- NOTE | 2021-07-08 01:00 | NUR ---
SLEEPING COMFORTABLY IN BED,RESPIRATIONS EVEN AND UNLABORED,NO SOB NOTED
[2021-07-08 04:00] VITALS: BP 111/51
--- NOTE | 2021-07-08 04:00 | NUR ---
PATIENT SLEEPING, RESPIRATION EVEN AND UNLABORED ,NO DISTRESS NOTED.
--- NOTE | 2021-07-08 06:00 | NUR ---
PATIENT SLEEPING,O2 SAT AT 99% NO PAIN OR SOB NOTED
[2021-07-08] MEDS: BLOOD GLUCOSE MONITORING 1 DEV DEV FS SCH ×4 (07:00→21:39)
[2021-07-08] MEDS: ALBUTEROL SULFATE/IPRATROPIU 3 ML SOL IH SCH ×3 (07:31→20:15)
--- NOTE | 2021-07-08 08:00 | NUR ---
RECEIVED ENDORSEMENT FROM PM SHIFT NURSE. PT STABLE STAY IN BED, PIV LFA 22G SALINE LOCK INTACT. WILL CONTINUE TO MONITOR
[2021-07-08] MEDS: PANTOPRAZOLE 40 MG TABEC PO SCH (08:53)
[2021-07-08] MEDS: FUROSEMIDE 40 MG TAB PO SCH (08:53)
[2021-07-08] MEDS: predniSONE 20 MG TAB PO SCH (08:53)
--- NOTE | 2021-07-08 10:46 | NUR ---
(07/08/21) RD FOLLOW UP COMPLETED PLEASE REFER TO NUTRITION PROGRESS NOTE UNDER CARE ACTIVITY FOR ESTIMATED NUTRITION NEEDS. RD RECOMMENDATIONS: 1. CONTINUE CARDIAC + CCHO 60GM DIET 2. MONITOR BLOOD GLUCOSE LEVELS 3. RD TO FOLLOW-UP 3-5 DAYS, MODERATE RISK CALDERON JUÁREZ MS, RDN
[2021-07-08] MEDS: INSULIN LISPRO SLIDING SCALE 100 UNITS/ML VIAL SUBQ PRN ×3 (12:41→21:41)
--- NOTE | 2021-07-08 15:00 | NUR ---
CHEST X-RAY COMPLETE, PT DRAG PORTABLE OXYGEN WALKING AT HALLWAY. NO ACUTE DISTRESS NOTED
[2021-07-08 16:00] VITALS: BP 109/64
--- NOTE | 2021-07-08 19:28 | NUR ---
ENDORSE PT TO PM SHIFT NURSE W/PT IN STABLE CONDITION, PIV LFA 22G SALINE LOCK INTACT.
--- NOTE | 2021-07-08 19:29 | NUR ---
RECD. SITTING ON BED, AWAKE, A/OX4. RESPIRATION EVEN AND UNLABORED. ON 02 AT 3 LITERS N/C WITH HUMIDIFIER. ON BREATHING TREATMENTS. AMBULATORY TO THE BR. TOLERATING WELL CARDIAC DIET. DENIES PAIN 0/10.
[2021-07-08 20:00] VITALS: BP 108/65
--- NOTE | 2021-07-09 03:26 | NUR ---
Patient's Plan of Care was discussed and reviewed with CRITICAL CARE EDUCATOR: []
[2021-07-09 04:00] VITALS: BP 107/60
[2021-07-09] MEDS: ALBUTEROL SULFATE/IPRATROPIU 3 ML SOL IH SCH ×3 (07:47→20:35)
[2021-07-09] MEDS: BLOOD GLUCOSE MONITORING 1 DEV DEV FS SCH ×4 (07:50→21:24)
[2021-07-09] MEDS: FUROSEMIDE 40 MG TAB PO SCH (09:00)
[2021-07-09] MEDS: predniSONE 20 MG TAB PO SCH (09:00)
[2021-07-09] MEDS: PANTOPRAZOLE 40 MG TABEC PO SCH (09:00)
[2021-07-09] MEDS: INSULIN LISPRO SLIDING SCALE 100 UNITS/ML VIAL SUBQ PRN ×2 (12:54→21:27)
--- NOTE | 2021-07-09 15:52 | NUR ---
07/09/21 RD FOLLOW UP COMPLETED. PLEASE REFER TO NUTRITION ASSESSMENT UNDER CARE ACTIVITY FOR ESTIMATED NUTRITIONAL NEEDS. 1. CONTINUE CARDIAC + CCHO 60GM DIET 2. MONITOR BLOOD GLUCOSE LEVELS 3. RD TO FOLLOW-UP 3-5 DAYS, MODERATE RISK KENNETH HARPER, RD
[2021-07-09 17:38] VITALS: BP 113/71
[2021-07-09 20:00] VITALS: BP 108/70
--- NOTE | 2021-07-09 22:00 | NUR ---
ALL DUE MEDICATION GIVEN. NO ADVERSE DRUG REACTION NOTED. WILL CONTINUE TO OBSERVE THE PATIENT.
--- NOTE | 2021-07-10 | NUR ---
PATIENT STILL AWAKE AND TALKING TO THE TRANSFORMATION CONSULTANT AT THE BEDSIDE. NO COMPLAIN AND NOT ON ANY DISTRESS AT THIS TIME. WILL CONTINUE OBSERVATION.
--- NOTE | 2021-07-10 02:01 | NUR ---
PATIENT ASLEEP AT THIS TIME. VISIBLE CHEST RISE AND FALL NOTED. WILL CONTINUE TO MONITOR THE PATIENT.
--- NOTE | 2021-07-10 04:00 | NUR ---
PT VSS , AFEBRILE, SATING 97% ON RA. WILL GIVE PRN MEDICATION ORDERED. NO COMPLAIN FROM THE PATIENT AT THIS TIME. WILL CONTINUE TO OBSERVE.
[2021-07-10] MEDS: BLOOD GLUCOSE MONITORING 1 DEV DEV FS SCH (06:20)
--- NOTE | 2021-07-10 07:01 | NUR ---
NO ACUTE EVENT THROUGHOUT THE NIGHT. PATIENT STABLE. NOT IN ANY DISTRESS AND NO COMPLAIN AT THIS TIME. WILL ENDORSE THE PATIENT TO THE ONCOMING RN FOR CONTINUITY OF CARE.
[2021-07-10] MEDS: ALBUTEROL SULFATE/IPRATROPIU 3 ML SOL IH SCH ×2 (08:13→13:23)
[2021-07-10] MEDS ORDERED: predniSONE 10 MG TAB PO SCH (09:00)
[2021-07-10] MEDS: FUROSEMIDE 40 MG TAB PO SCH (09:04)
[2021-07-10] MEDS: PANTOPRAZOLE 40 MG TABEC PO SCH (09:04)
--- NOTE | 2021-07-10 10:37 | NUR ---
PT ON ROOM AIR SPO2 86%. PT RETURNED TO 2L NC. WILL CONTINUE TO MONITOR.
[2021-07-10] MEDS ORDERED: DOCU-299 PO (14:20)
[2021-07-10] MEDS ORDERED: PANT40EC56 PO (14:20)
[2021-07-10] MEDS ORDERED: PRED10TA5 PO (14:20)
[2021-07-10] MEDS ORDERED: FURO40TA9 PO (14:20)
[2021-07-10 14:45] LABS: BASOPHILS % (AUTO) 0.3 % (0.0-2.0); EOSINOPHILS % (AUTO) 0.1 % (0.0-4.0); HEMATOCRIT 52.5 % (36-48); LYMPHOCYTES # (AUTO) 1.7 K/uL (2.5-16.5); LYMPHOCYTES % (AUTO) 14.5 % (20.5-51.1); MEAN CORPUSCULAR HEMOGLOBIN 28 pg (27-31); MEAN CORPUSCULAR HGB CONC 32 g/dL (33-37); MEAN CORPUSCULAR VOLUME 86.2 fL (80-94); MONOCYTES # (AUTO) 0.2 K/uL (0.8-1.0); MONOCYTES % (AUTO) 1.7 % (1.7-9.3); NEUTROPHILS # (AUTO) 9.9 K/uL (1.8-7.7); NEUTROPHILS % (AUTO) 83.4 % (42.2-75.2); PLATELET COUNT (AUTO) 274 K/uL (140-450); RED CELL DISTRIBUTION WIDTH 18.6 % (11.6-13.7); WHITE BLOOD COUNT (AUTO) 11.9 K/uL (4.8-10.8)
[2021-07-10 15:11] LABS: ANION GAP 9.6 (8-16); CARBON DIOXIDE 32.5 mmol/L (21-32); CREATININE 0.8 mg/dL (0.6-1.3); POTASSIUM 4.1 mmol/L (3.5-5.1)
[2021-07-10 16:40] VITALS: BP 114/73
--- NOTE | 2021-07-10 18:16 | NUR ---
PATIENT DISCHARGED AND DISCHARGE INSTRUCTION GIVEN, HL REMOVED, PATIENT ESCORTED ON W\C WITH NURSE WITH OUT ANY DISCOMFORT.[id number]
[2021-07-21] MEDS ORDERED: ACET-8386 PO (11:41)
== END 2021-07-10 17:54 | disposition home or self-care (01) | DRG 720 ==
LOC: MED 17:34 → MMU 20:42 → MTU 07-01 00:22
PROVIDERS: ADMIT Family Medicine; ATTEND Family Medicine
PROC: 5A0935A Assistance with Respiratory Ventilation, Less than 24 Consecutive Hours, High Flow/Velocity Cannula (ICD-10-PCS; principal; 2021-07-01)
PROC: 5A0935A Assistance with Respiratory Ventilation, Less than 24 Consecutive Hours, High Flow/Velocity Cannula (ICD-10-PCS; 2021-07-02)
PROC: 5A0935A Assistance with Respiratory Ventilation, Less than 24 Consecutive Hours, High Flow/Velocity Cannula (ICD-10-PCS; 2021-07-03)
PROC: 5A0935A Assistance with Respiratory Ventilation, Less than 24 Consecutive Hours, High Flow/Velocity Cannula (ICD-10-PCS; 2021-07-04)
DX: A41.9 Sepsis, unspecified organism (principal); J96.21 Acute and chronic respiratory failure with hypoxia; I50.43 Acute on chronic combined systolic (congestive) and diastolic (congestive) heart failure; J18.9 Pneumonia, unspecified organism; I27.20 Pulmonary hypertension, unspecified; I11.0 Hypertensive heart disease with heart failure; Z20.822 Contact with and (suspected) exposure to COVID-19; D75.1 Secondary polycythemia; Z90.49 Acquired absence of other specified parts of digestive tract; Z86.16 Personal history of COVID-19; Z79.899 Other long term (current) drug therapy; Z91.14 Patient's other noncompliance with medication regimen
CPT/HCPCS: 36415; 36600; 71045; 71275; 80048; 80053; 80305; 81003; 82150; 82803; 82948; 83036; 83690; 83735; 83880; 84100; 84436; 84439; 84443; 84479; 84484; 85025; 85610; 85730; 86038; 86160; 86430; 87070; 87081; 87205; 94617; 94640; 96365; 99285; J0456; J0696; J1815; J1940; J2920; J7060; J7512; Q9967

== ENCOUNTER 2021-07-17 23:20 | Emergency (ER) | payer MEDICAID ==
[~2021-07-17] VITALS: Ht 139.7 cm; Wt 58.1 kg
[~2021-07-17 23:20] MED LIST changes: -ACET-8386 PO; -CEPH250C16 PO; +DOCU-299 PO; -FURO-570 PO; +FURO40TA9 PO; +LISI2.5T12 PO; +PANT40EC56 PO; +PRED10TA5 PO; -SPIR25TA PO; -TAMS0.4C96 PO
[2021-07-17 23:35] VITALS: BP 154/101
--- NOTE | 2021-07-17 23:40 | NUR ---
PATIENT TO THE BATHROOM FOR URINE COLLECTION
--- NOTE | 2021-07-17 23:42 | NUR ---
PT TO LOBBY
[2021-07-17 23:58] LABS: BASOPHILS # (AUTO) 0.1 K/uL (0.00-0.22); BASOPHILS % (AUTO) 0.5 % (0.0-2.0); EOSINOPHILS # (AUTO) 0.1 K/uL (0-0.4); EOSINOPHILS % (AUTO) 0.5 % (0.0-4.0); HEMATOCRIT 52.2 % (36-48); HEMOGLOBIN 17.2 g/dL (12.0-16.0); LYMPHOCYTES # (AUTO) 4.2 K/uL (2.5-16.5); LYMPHOCYTES % (AUTO) 21.9 % (20.5-51.1); MEAN CORPUSCULAR HEMOGLOBIN 28 pg (27-31); MEAN CORPUSCULAR HGB CONC 33 g/dL (33-37); MONOCYTES # (AUTO) 1.2 K/uL (0.8-1.0); MONOCYTES % (AUTO) 6.1 % (1.7-9.3); NEUTROPHILS # (AUTO) 13.7 K/uL (1.8-7.7); PLATELET COUNT (AUTO) 252 K/uL (140-450); RED BLOOD CELL COUNT(AUTO) 6.14 MIL/uL (4.20-5.40); RED CELL DISTRIBUTION WIDTH 19.1 % (11.6-13.7); WHITE BLOOD COUNT (AUTO) 19.3 K/uL (4.8-10.8)
[2021-07-18 00:12] LABS: ALBUMIN 3.9 g/dL (3.4-5.0); ANION GAP 12.7 (8-16); CARBON DIOXIDE 27.9 mmol/L (21-32); CREATININE 0.5 mg/dL (0.6-1.3); POTASSIUM 3.6 mmol/L (3.5-5.1); TOTAL BILIRUBIN 0.3 mg/dL (0.0-1.0)
--- NOTE | 2021-07-18 01:44 | NUR ---
pt to bed 1 ambulatory
--- NOTE | 2021-07-18 02:00 | NUR ---
assumed patient care, here for epigastric pain. Pt connected to supervisor tank house, noted sinus bradycardia on the monitor and saturation of 80% on RA after usiing the restroom. Connected to oxygen 2L
[2021-07-18] MEDS ORDERED: KETOROLAC 60 MG/2 ML VIAL IM ONE (02:10)
[2021-07-18] MEDS ORDERED: ACET-8386 PO (02:13)
[2021-07-18 02:58] VITALS: BP 145/89
[2021-07-21] MEDS ORDERED: ACET-8386 PO (11:41)
== END 2021-07-18 02:58 | disposition home or self-care (01) ==
LOC: MED 23:20
DX: R10.13 Epigastric pain (principal); E11.9 Type 2 diabetes mellitus without complications; I10 Essential (primary) hypertension; Z90.49 Acquired absence of other specified parts of digestive tract; Z79.899 Other long term (current) drug therapy
CPT/HCPCS: 36415; 80053; 81002; 81025; 83690; 85025; 96372; 99283; J1885